=== PATIENT | male | born 1960 | race Caucasian/White ===

== ENCOUNTER 2016-11-24 11:11 | Emergency (ER) | payer BC ==
[2016-11-24] MEDS ORDERED: diPHENhydraMINE IV* 50 MG/ML 1 ml VIAL (BENADRYL) IV ONE (11:20)
[2016-11-24] MEDS ORDERED: methylPREDNISolone 125 MG* 2 ML VIAL IV ONE (11:20)
[2016-11-24] MEDS ORDERED: diPHENhydraMINE IV* 50 MG/ML 1 ml VIAL (BENADRYL) ONE (11:20)
[2016-11-24] MEDS ORDERED: methylPREDNISolone 125 MG* 2 ML VIAL ONE (11:20)
[2016-11-24] MEDS ORDERED: NS 0.9% 1000 ML* 1,000 ML IV ONE (11:20)
[2016-11-24] MEDS ORDERED: Famotidine IV* 10 MG/ML 2 ML (20 mg) IV SLOW PU ONE (11:20)
[2016-11-24] MEDS ORDERED: Famotidine IV* 10 MG/ML 2 ML (20 mg) ONE (11:21)
[2016-11-24] MEDS ORDERED: EPINEPHrine AMP 1 MG/ML SUBCUT ONE (11:21)
--- NOTE | 2016-11-24 11:30 | ED ---
Allergic Reaction/Systemic - HPI Summary HPI Summary: Pt here w/ 7+ bee stings 45 minutes prior to arrival. Was mowing his lawn when a swarm of bees attacked him. H/o bee sting allergy w/ anaphylaxis. Did not take any meds prior to arrival as he couldn't find his epi pen (believes this is anyway). Has throat tightness, axillary itching, head pain. Denies shortness of breath, wheezing, facial swelling or numbness. H/o asthma - does not feel this is exacerbated at this time. He's unsure of last tetanus vaccine. - History of Current Complaint Time Seen by Provider: 11/24/16 11:27 Hx Obtained From: Patient - Allergies/Home Medications Allergies/Adverse Reactions: Allergies Allergy/AdvReac Type Severity Reaction Status Date / Time No Known Allergies Allergy Verified 07/17/15 08:28 PMH/Surg Hx/FS Hx/Imm Hx Previously Healthy: Yes Endocrine/Hematology History: Denies: Hx Diabetes Cardiovascular History: Reports: Hx Hypertension - MEDS Denies: Hx Congestive Heart Failure Respiratory History: Reports: Hx Asthma, Other Respiratory Problems/Disorders - anaphylaxis w/ bee stings Musculoskeletal History: Reports: Hx Arthritis - RIGHT SHOULDER, HX OF ARTHRTIS IN LEFT HIP - TOTAL REPLACEMENT 2008, Other Musculoskeletal History - right shoulder , left hip replacement Sensory History: Reports: Hx Contacts or Glasses - READING GLASSES Denies: Hx Hearing Aid Opthamlomology History: Reports: Hx Contacts or Glasses - READING GLASSES - Surgical History Surgery Procedure, Year, and Place: 2005 LEFT INGUINAL AND UMBILICIAL HERNIA REPAIRS, [facility] [place] 2006 RIGHT INGUINAL HERNIA REPAIR, [facility] [place]. 2008 LEFT HIP REPLACEMENT, [facility] [place]. 1965 TONSILLECTOMY, [facility] Hx Anesthesia Reactions: No - Immunization History Date of Tetanus Vaccine: 2010 Date of Influenza Vaccine: Fall 2012 - Family History Known Family History: Positive: Other - Mother with MS, Father with colon cancer - Social History Alcohol Use: Weekly Hx Substance Use: No Substance Use Type: Reports: None Hx Tobacco Use: No Smoking Status (MU): Never Smoked Tobacco Review of Systems Constitutional: Negative Negative: Fever, Chills ENT: Other - see HPI Negative: Chest Pain Respiratory: Other - see HPI Negative: Shortness Of Breath Negative: Vomiting, Nausea Musculoskeletal: Negative Negative: Decreased ROM, Edema Skin: Other - multiple hives from bee sting sites - see HPI Neurological: Other - see HPI Psychological: Normal All Other Systems Reviewed And Are Negative: Yes Physical Exam Triage Information Reviewed: Yes Vital Signs Reviewed: Yes Appearance: Positive: Well-Appearing, No Pain Distress, Well-Nourished - muscular build Skin: Positive: Warm, Dry - multiple areas of erythematous urticaria over upper extremities and head Head/Face: Positive: Normal Head/Face Inspection - no thania edema Eyes: Positive: Normal, EOMI ENT: Positive: Hearing grossly normal, Pharynx normal Neck: Positive: Supple, Nontender Respiratory/Lung Sounds: Positive: Breath Sounds Present. Negative: Rales, Rhonchi, Stridor, Wheezes Cardiovascular: Positive: Normal, RRR, Pulses are Symmetrical in both Upper and Lower Extremities Musculoskeletal: Positive: Normal, Strength/ROM Intact Neurological: Positive: Normal, Sensory/Motor Intact, Alert, Oriented to Person Place, Time, CN Intact II-III Psychiatric: Positive: Normal Re-Evaluation - Re-Evaluation First Eval Change: Improved - throat tightness and axillary itching improved s/p IV meds Allergic Reaction Course/Dx - Course Course Of Treatment: Pt w/ h/o anaphylactic bee sting reaction here w/ multiple stings over head and UE's 45 mins prior to arrival. C/o throat tightness, itching. Administered IV benadryl, pepcid, NS and subcutaneous epi - pt reports improvement of sx and no CP. Needs observation for at least 4 hours d/t reaction as well as epi being on board. Spoke w/ Dr. Ramirez who will admit for observation as ED census is beyond full capacity. - Diagnoses Provider Diagnoses: Anaphylactic reaction to bee sting Discharge - Discharge Plan Condition: Stable Disposition: ADMITTED TO [facility]
[2016-11-24] MEDS ORDERED: Tetan/Diph/Pertus SYR(Tdap)* 0.5 ML SYR(BOOSTRIX) use SYR IM ONE (13:43)
[2016-11-24 16:43] VITALS: BP 149/98
--- NOTE | 2016-11-24 18:35 | CONS ---
CONSULTATION REPORT: ADDENDUM: Mr. Mackenzie is a 55-year-old male with history of allergy to BEE STING, who was stung b y several bees today. He received an intramuscular shot of EpiPen and Solu-Medrol. He was requeste d by the ED provider to stay overnight for observation. The patient himself is not interested in st aying overnight in the hospital. For the time being, he is going to be observed for the next couple of hours in the emergency department according to the ED provider's wishes and the patient's wishes. A consultation was requested in regards to the possibility of admission. For further detai ls of the patient's presentation, please see the report dictated by Jackelin Ascencio NP, on 11/24/16, with which I agree. [id number]/[place] #: [id number]
--- NOTE | 2016-11-24 19:25 | CONS ---
CC: Quynh Rios NP* CONSULTATION REPORT: DATE OF CONSULT: 11/24/16 PRIMARY CARE PROVIDER: Quynh Rios NP ATTENDING PHYSICIAN: Dr. Rosalba Ramirez (dictated by Brianna Cole NP) CHIEF COMPLAINT: Seven bee stings while mowing the lawn. HISTORY OF PRESENT ILLNESS: Mr. Mackenzie is a 55-year-old male with past medical history significant for hypertension, arthritis, and BEE STING allergy, who presents to the emergency room after being stung by 7 plus bees while he was mowing the lawn. The patient presented to the emergency room for further evaluation due to having a severe allergic reaction past the bee stings. While in the emergency room, the patient received epinephrine, famotidine, Benadryl, Solu-Medrol, a liter of normal saline, and a tetanus shot. Due to the patient' s history of significant allergy, the hospitalists were asked to evaluate the patient for possible admission. The patient denies any recent fever, chills, chest pain, shortness of breath, nausea, vomiting, or diarrhea. The patient reports having a throat tightness that has resolved during his time in the emergency room. PAST MEDICAL HISTORY: 1. Hypertension. 2. Arthritis. PAST SURGICAL HISTORY: 1. Status post a left total hip arthroplasty in 2008. 2. Status post left inguinal and umbilical hernia repair in 2005. 3. Status post right inguinal hernia repair in 2006. 4. Status post tonsillectomy in 1955. HOME MEDICATIONS: Include: 1. Lisinopril 20 mg oral daily. 2. Amlodipine 5 mg oral daily. 3. Testosterone 10 mg 5 pumps and apply topical to thigh daily. ALLERGIES: BEES, FIRE ANTS, and ENVIRONMENTAL ALLERGIES. FAMILY HISTORY: The patient denies any family history of coronary artery disease. The patient has a paternal grandfather with history of diabetes mellitus. The patient's father has history of colon cancer and the patient's paternal grandmother with history of breast cancer. SOCIAL HISTORY: The patient denies tobacco or recreational drug use. The patient occasionally drinks alcoholic beverages. 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 His significant other, Teena Vance, will be his surrogate decision maker in the event he is unable to make decisions for himself. REVIEW OF SYSTEMS: I performed a 14-point review of systems. All the pertinent positives and negatives are mentioned in the history of present illness. The remaining review of systems is negative. PHYSICAL EXAM: Vital Signs: Temperature 99.1, heart rate 91, respiratory rate 18, O2 sat 97% on room air, blood pressure 157/87. General Appearance: The patient is alert, pleasant, appears to be in no acute distress. HEENT: Normocephalic, atraumatic. Pupils equal and reactive to light. Extraocular movements are intact. Respiratory: There is no accessory muscle use and lungs are clear to auscultation bilaterally. Cardiovascular: Regular rate and rhythm. S1 and S2 present. There are no murmurs, rubs, or gallops heard. Abdomen: Soft, nontender, nondistended. There are bowel sounds present x4. Extremities: There is no lower extremity edema. DP and PT pulses are 2+ and symmetric. Musculoskeletal: There is no clubbing or cyanosis noted. The patient exhibits good strength in all extremities. Neurologic: The patient is alert and oriented x4. Cranial nerves II through XII are grossly intact. Psychological: The patient is calm and cooperative. Skin: There are no rashes or abnormalities seen. The patient does have multiple bee stings to his right axillary area. DIAGNOSTIC STUDIES/LAB DATA: None. IMPRESSION: Mr. Mackenzie is a 55-year-old with a past medical history significant for hypertension and arthritis and a BEE STING allergy, who presents to the emergency room after sustaining bee stings earlier today. The hospitalists are asked to consult on this patient. ASSESSMENT AND PLAN: 1. BEE STING allergy. The patient will be monitored on telemetry. He received a dose of Solu-Medrol in the emergency room. We will continue him on a prednisone taper over the next 5 days. The patient does not wish to stay the night, would prefer to be monitored for a couple hours in the emergency room. 2. Hypertension. The patient will be continued on his home lisinopril and amlodipine. 3. Fluids, electrolytes, and nutrition. The patient will be on a regular diet. 4. Code status. Full code. 5. DVT prophylaxis. The patient is a moderate risk and will encourage to ambulate and have SCDs. 6. Disposition: If the patient changes mind, we will admit him as an observation. In the meantime, the patient would prefer to be monitored for a couple of hours in the emergency room and discharged to home. TIME SPENT: Time for this admission was 45 minutes, greater than half the time was spent [id number] with the patient discussing medications, past medical history, the events leading up to his arrival today, performing a physical examination. The case has been reviewed with the attending doctor, Dr. Ramirez, who agrees with the plan of care. Reviewed by BRIANNA COLE, FIELD [employer]OP FARMWORKER-C 11/25/16 1406 ADDENDUM TO CONSULTATION REPORT: Mr. Mackenzie is a 55-year-old male with history of allergy to BEE STING, who was stung by several bees today. He received an intramuscular shot of EpiPen and Solu-Medrol. He was requested by the ED provider to stay overnight for observation. The patient himself is not interested in staying overnight in the hospital. For the time being, he is going to be observed for the next couple of hours in the emergency department according to the ED provider's wishes and the patient's wishes. A consultation was requested in regards to the possibility of admission. For further details of the patient's presentation , please see the report dictated by Brianna Cole, BRANDON, on 11/24/16, with which I agree. Rosalba Ramirez MD [id number]/[facility] #: [id number]/[facility] #: [id number] SURENDRA
[2016-11-25] MEDS ORDERED: Lisinopril TAB* 10 MG PO SCH (09:00)
[2016-11-25] MEDS ORDERED: amLODIPine TAB* 5 MG PO SCH (09:00)
[2016-11-25] MEDS ORDERED: predniSONE TAB* 10 MG PO SCH (09:00)
== END 2016-11-24 16:45 | disposition home or self-care (01) ==
LOC: ED 11:11 → MEDTELE 13:29 → UNDOADMOB 13:29 → ED 16:45
DX: T63.441A Toxic effect of venom of bees, accidental (unintentional), initial encounter (principal); T78.2XXA Anaphylactic shock, unspecified, initial encounter; Y92.89 Other specified places as the place of occurrence of the external cause; X58.XXXA Exposure to other specified factors, initial encounter
CPT/HCPCS: 96374; 96375; 99282; J0171; J1200; J2930

== ENCOUNTER 2017-12-05 11:42 | Emergency (ER) | payer BC, OTHER ==
[2017-12-05] MEDS ORDERED: predniSONE TAB* 20 MG PO ONE (12:23)
[2017-12-05] MEDS ORDERED: diPHENhydraMINE PO* 50 MG PO ONE (12:23)
--- NOTE | 2017-12-05 12:46 | ED ---
Allergic Reaction/Systemic - HPI Summary HPI Summary: This is ana m Foreman documenting for attending Dr. Robby Gerard MD. This patient is a 57 year old M presenting to [facility] with a chief complaint of allergic reaction due to a bee sting since 1.5 hours ago. The patient rates the pain 2/10 in severity. Patient reports erythema of the face and a burning pain on the nose. Patient denies swelling, itching, difficulty breathing, or throat tightness. 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 The bees were white and black. Pt was stung 12 times about a year ago and had a more severe reaction with hives, throat swelling, and itching. Pt last took some Benadryl at 4am. PMHx HTN. Rx Cinapro, Besylate. - History of Current Complaint Chief Complaint: EDAllergicReaction Time Seen by Provider: 12/05/17 12:09 Hx Obtained From: Patient Onset/Duration: Sudden Onset, Started hours ago - 1.5 Timing: Constant Severity Initially: Mild Severity Currently: Mild Pain Intensity: 2 Pain Scale Used: 0-10 Numeric Location: Discrete @ - nose, left shoulder Associated Signs And Symptoms: Positive: Rash - nose and shoulder - Allergies/Home Medications Allergies/Adverse Reactions: Allergies Allergy/AdvReac Type Severity Reaction Status Date / Time bee venom protein (honey bee) Allergy Rash And Verified 12/05/17 12:02 Itching PMH/Surg Hx/FS Hx/Imm Hx Endocrine/Hematology History: Denies: Hx Diabetes Cardiovascular History: Reports: Hx Hypertension - MEDS Denies: Hx Congestive Heart Failure Respiratory History: Reports: Hx Asthma, Other Respiratory Problems/Disorders - anaphylaxis w/ bee stings Musculoskeletal History: Reports: Hx Arthritis - RIGHT SHOULDER, HX OF ARTHRTIS IN LEFT HIP - TOTAL REPLACEMENT 2009, Other Musculoskeletal History - right shoulder , left hip replacement Sensory History: Reports: Hx Contacts or Glasses - READING GLASSES Denies: Hx Hearing Aid Opthamlomology History: Reports: Hx Contacts or Glasses - READING GLASSES - Surgical History Surgery Procedure, Year, and Place: 2005 [place]IN[place] [facility] [place] [facility] [place] [facility] [place] [facility]OM[place], [facility] Hx Anesthesia Reactions: No - Immunization History Date of Tetanus Vaccine: 2010 Date of Influenza Vaccine: Fall 2012 Infectious Disease History: No Infectious Disease History: Denies: Traveled Outside the [place] in Last 30 Days - Family History Known Family History: Positive: Other - Mother with MS, Father with colon cancer - Social History Alcohol Use: Weekly Hx Substance Use: No Substance Use Type: Reports: None Hx Tobacco Use: No Smoking Status (MU): Never Smoked Tobacco Review of Systems Negative: Sore Throat, Other - throat tightness Negative: Shortness Of Breath Positive: Rash - nose and left shoulder All Other Systems Reviewed And Are Negative: Yes Physical Exam - Summary Physical Exam Summary: Constitutional: Well-developed, Well-nourished, Alert. Skin: Warm, Dry. Localized erythematous swelling of the nose and left shoulder. HENT: Normocephalic; Atraumatic Eyes: Conjunctiva normal Neck: Musculoskeletal ROM normal neck. Cardio: Rhythm regular, rate normal, Heart sounds normal; Intact distal pulses; The pedal pulses are 2+ and symmetric. Radial pulses are 2+ and symmetric. Pulmonary/Chest wall: Effort normal. Abd: Soft. Musculoskeletal: normal Neuro: Alert, Oriented x3 Psych: Mood and affect Normal Triage Information Reviewed: Yes Vital Signs On Initial Exam: Initial Vitals Temp Pulse Resp BP Pulse Ox 98.0 F 88 16 165/92 97 12/05/17 11:44 12/05/17 11:44 12/05/17 11:44 12/05/17 11:44 12/05/17 11:44 Vital Signs Reviewed: Yes Diagnostics - Vital Signs Vital Signs Temp Pulse Resp BP Pulse Ox 12/05/17 11:44 98.0 F 88 16 165/92 97 - Laboratory Lab Statement: Any lab studies that have been ordered have been reviewed, and results considered in the medical decision making process. Re-Evaluation - Re-Evaluation First Eval Re-Evaluation Time: 13:40 Comment: I encouraged the pt to stay in the emergency room to see if more symptoms appeared, but the pt wants to leave. Pt knows that the symptoms may get worse. Pt has an Epi-pen at home. Allergic Reaction Course/Dx - Course Course Of Treatment: This is scribe vEangelist Foreman documenting for attending Dr. Robby Gerard MD. This patient is a 57 year old M presenting to [facility] with a chief complaint of allergic reaction due to a bee sting since 1.5 hours ago. The patient rates the pain 2/10 in severity. Patient reports erythema of the face and a burning pain on the nose. Patient denies swelling, itching, difficulty breathing, or throat tightness. 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 The bees were white and black. Pt was stung 12 times about a year ago and had a more severe reaction with hives, throat swelling, and itching. Pt last took some Benadryl at 4am. PMHx HTN. Rx Cinapro, Besylate. Pt was advised not to work today and to call for a ride home. In the ED course the patient was given Benadryl and Prednisone. Pt was advised to wait in the ER but they decided they wanted to leave. Pt has an Epi-pen at home if more symptoms appear. - Diagnoses Provider Diagnoses: Bee sting allergy Discharge - Sign-Out/Discharge Documenting (check all that apply): Patient Departure - discharge - Discharge Plan Condition: Stable Disposition: HOME Prescriptions: predniSONE TAB* [Deltasone TAB*] 50 mg PO DAILY #4 tab Patient Education Materials: Insect Bite or Sting (ED) Referrals: Dangelo Arzate MD [Primary Care Provider] - Additional Instructions: RETURN TO THE EMERGENCY DEPARTMENT FOR CHANGING OR WORSENING SYMPTOMS
--- OUTSIDE RECORDS SUMMARY | 2017-12-05 12:47 | XMS REPORT ---
:1960 External Reference #:[id number] Author Organization [facility] Address [address] [place] [address] Phone [phone] Care Team Providers Name Role Phone Dangelo Arzate MD Care Team Information Chlorinator Unavailable Payers Type Date Identification Numbers Payment Provider Subscriber Commercial Expires: Policy Number: Constantine Mackenzie 2015 [id number] Group Name: [place] [address] [address] PayID: [id number] TOMASA Contreras [id number] Medigap Part B Effective: Policy Number: Constantine Mackenzie 2015 [id number] Group Name: [employer] 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 [employer] Cigarette Use Never Smoked Cigarettes ETOH Use Occasionally consumes beer Recreational Drug Use Denies Drug Use Smoking Patient has never smoked Enjoy Exercising Enjoys exercising Allergies, Adverse Reactions, Alerts Date Description Reaction Status Severity Comments 10/16/2013 NKDA active Medications Medication Date Status Form Strength Qnty SIG Indications Ordering Provider Cialis 11/09 Active Tablets 5mg 30tab 1 by mouth N40.1 Dangleo /2018 s once daily MD Carito Flomax 11/09 Active Capsules 0.4mg 30cap 1 by mouth N40.1 Dangelo s every day MD Thomas Arzate 08/26 Active Capsules 100mg 45cap take 1 Dangelo s capsule by [place]ks mouth 3 , MD times per day as needed for cough Meloxicam 07/21 Active Tablets 15mg 30tab Take One M25.512 Dangelo s Tablet By Louieetdaphney Mouth Every , MD Day Epipen 2-Danny 12/28 Active Solution 0.3mg/0.3 2Pack use as Quynh Auto-Inject ML directed HIRAL SharpP-C Hydrocodone-Acet 09/18 Active Tablets 5-325mg 15tab 1 by mouth M54.2 Dangelo aminophen /2016 s every 6 [place] hours as MD needed Fortesta 05/06 Active Gel 10mg/Act 60uni apply 5 I10 Dangelo (2%) ts pumps once [place] daily to , thigh; maximum daily dose=5 pumps Fortesta 05/06 Active Gel 10mg/Act 60uni Apply 5 Srini (2%) ts Pumps Once Zion Daily To III, Thigh; [employer] Maximum Daily Dose=5 Pumps Amlodipine 10/20 Active Tablets 5mg 30tab Take One Quynh Besylate s Tablet By Aron Mouth Every [employer] Day Lisinopril 10/16 Active Tablets 20mg 30tab Take One Dangelo s Tablet By Carito Mouth Every , MD Day Proair Active Aerosol 108(90Bas as directed Unknown Respiclick /0000 e) mcg/Act Augmentin 05/05 Hx Tablets 875-125mg 20tab 1 by mouth J01.90 Quynh s twice a day Sallie Sharp for [employer] 06/18 infection, take for 10 days Cyclobenzaprine 09/18 Hx Tablets 5mg 30tab 1-2 by M54.2 Dangelo HCL s mouth three [place] - times a day MD 08/26 for spasm, may cause drowsiness Cialis 06/16 Hx Tablets 5mg 30tab 1 by mouth Quynh s every day Sallie Sharp [employer] 11/09 Azithromycin 12/29 Hx Tablets 250mg 6tabs take 2 J01.90 tablets Aron, - today then [facility] 06/05 1 tablet daily for the next 4 days Androgel 04/29 Hx Gel 50mg/5GM 30pac apply the (1%) kets contents of Aron, - [address] [facility] 06/05 the upper arm, shoulder or abdomen once daily at the same time. Tizanidine HCL 03/27 Hx Tablets 4mg 30tab take 05/11-1 S46.812A Srini s tablet by Whitman - mouth three III, 03/[address] [facility] as needed for muscle spasm Androgel 11/03 Hx Gel 50mg/5GM 10gm Apply 4 (1%) pumps to Aron, - skin on [facility] 11/03 upper arms /2015 or abdomen daily. allow to dry before dressing Androgel Pump 11/03 Hx Gel 12.5mg/Ac 150gm apply 4 t (1%) pumps to [facility] arms or [facility] 04/29 abdomen once daily allow to dry prior to dressing maximum daily dose=4 pumps Doxycycline 09/15 Hx Capsules 100mg 2caps 2 tabs by Quynh Cm mouth today Sallie Sharp [facility] 06/05 Lansoprazole 07/[address] 30mg 28cap 1 tab by Nimo Pierson s mouth twice [place] - a day MD 03/12 Amoxicillin 07/23 Hx Tablets 500mg 56tab 2 tab by Nimo Pierson /Uche s mouth twice [place] - a day , 06/05 Clarithromycin 07/23 Hx Tablets 500mg 28tab 1 take by Nimo Pierson /2015 s mouth [place] - MD adelina 06/05 every hours for 14 days Protonix 06/[address] 20mg 30tab 1 by mouth [facility]h [facility] Ondans[facility]ron 06/12 Hx Tablets 4mg 10tab dissolve 1 R10.9 Quynh /2016 Dispers s tab by Aron, - mouth three [employer] 07/23 times a day /2015 as needed nausea Hydroxyzine HCL 01/23 Hx Tablets 25mg 45tab Take 1 To 2 401.1 Quynh s Tablets By Aron, - Mouth Every [employer] 07/23 6 Hours as Needed For Anxiety/ Insomnia Cyclobenzaprine 12/15 Hx Tablets 5mg 30tab 1-2 by 724.2 Quynh HCL s mouth three Aron, - times a day [employer] 07/23 for muscle /2016 spasm, may cause drowsiness Meloxicam 12/15 Hx Tablets 7.5mg 30tab 1 by mouth 724.2 s bid for Aron, - back pain, [employer] 07/23 take with food Oxycodone-Acetam 12/15 Hx Tablets 5-325mg 15fif 1 - 2 tabs 724.2 Quynh ino teen by mouth Aron, - every 6 [employer] 01/23 hours as needed severe pain Hyoscyamine 10/20 Hx Tablets 0.125mg 1 tablet q 4 hours prn Aron, - [employer] 07/23 Zofran 10/20 Hx Tablets 4mg Aron, - [employer] 01/23 Hydrocodone-Acet 10/20 Hx Tablets 5-325mg 16six amino teen Aron, - [employer] 01/23 Ibuprofen 10/20 Hx Tablets 200mg 3 tabs po q 6-8 hours Aron, - prn pain [employer] 01/23 Fortesta 10/16 Hx Gel 10mg/Act 60uni apply 5 I10 (2%) ts pumps once Aron, - daily to [employer] 11/03 thigh maximum daily dose=5 pumps Dymista 00/00 Hx Suspension 137-50mcg as directed Unknown /0000 /Act - 03/12 Immunizations CPT Code Status Date Vaccine Lot # [id number] Given Unknown Tetanus [id number] Refused 11/09/2017 Influenza Virus Vaccine, Quadrivalent, 3 Yr > Quad , Preserv Free [id number] Refused 06/05/2016 Influenza Virus Vaccine, Quadrivalent, 3 Yr > Quad , Preserv Free 14603 Refused 05/07/2016 Influenza Virus Vaccine, Quadrivalent, 3 Yr > Quad , Preserv Free Vital Signs Date Vital Result Comment 11/09/2017 Weight 294.00 lb Weight in kg's 133.358 BP Systolic 148 mmHg BP Diastolic 91 mmHg Heart Rate 76 /min Body Temperature 97.7 F Height 71 inches 5'11" BMI (Body Mass Index) 41.0 kg/m2 O2 % BldC Oximetry 97 % 08/26/2017 Weight 301.00 lb Weight in kg's 136.534 BP Systolic 148 mmHg BP Diastolic 88 mmHg Heart Rate 92 /min Body Temperature 99.0 F Respiratory Rate 16 /min O2 % BldC Oximetry 98 % 07/21/2017 Weight 299.00 lb Weight in kg's 135.626 BP Systolic 140 mmHg BP Diastolic 78 mmHg Heart Rate 82 /min Body Temperature 97.3 F Respiratory Rate 16 /min O2 % BldC Oximetry 98 % 06/18/2017 Weight 300.00 lb Weight in kg's 136.080 BP Systolic 138 mmHg BP Diastolic 78 mmHg Heart Rate 80 /min Body Temperature 97.1 F Respiratory Rate 16 /min O2 % BldC Oximetry 98 % 05/05/2017 Weight 295.00 lb Weight in kg's 133.812 BP Systolic 142 mmHg BP Diastolic 82 mmHg Heart Rate 80 /min Body Temperature 97.5 F Respiratory Rate 15 /min O2 % BldC Oximetry 98 % 03/12/2017 Weight 250.00 lb Weight in kg's 113.400 BP Systolic 138 mmHg BP Diastolic 80 mmHg Heart Rate 81 /min Body Temperature 97.5 F Right Visual Acuity Distance 20/20 Left Visual Acuity Distance 20/20 Both Visual Acuity Distance 20/20 Right ear audiology results PASS Left ear audiology results PASS 12/28/2016 Weight 273.00 lb Weight in kg's 123.833 BP Systolic 138 mmHg BP Diastolic 80 mmHg Heart Rate 84 /min Body Temperature 97.5 F Respiratory Rate 20 /min 09/18/2016 Weight 286.00 lb Weight in kg's 129.730 BP Systolic 140 mmHg BP Diastolic 90 mmHg Heart Rate 64 /min Body Temperature 98.3 F Respiratory Rate 14 /min 06/05/2016 Weight 286.00 lb Weight in kg's 129.730 BP Systolic 138 mmHg BP Diastolic 90 mmHg Heart Rate 73 /min Body Temperature 98.0 F Respiratory Rate 14 /min O2 % BldC Oximetry 97 % 05/07/2016 Weight 292.00 lb Weight in kg's 132.451 BP Systolic 120 mmHg BP Diastolic 80 mmHg Heart Rate 73 /min Body Temperature 97.7 F Respiratory Rate 16 /min O2 % BldC Oximetry 98 % 03/27/2016 Weight 287.00 lb Weight in kg's 130.183 BP Systolic 150 mmHg BP Diastolic 94 mmHg Heart Rate 92 /min 11/07/2015 Weight 281.00 lb Weight in kg's 127.462 BP Systolic 142 mmHg BP Diastolic 92 mmHg Heart Rate 56 /min Body Temperature 99.0 F O2 % BldC Oximetry 98 % 07/24/2015 Weight 279.00 lb Weight in kg's 126.554 BP Systolic 128 mmHg BP Diastolic 86 mmHg Heart Rate 64 /min Body Temperature 98.3 F 06/12/2015 Weight 289.00 lb Weight in kg's 131.090 BP Systolic 160 mmHg BP Diastolic 94 mmHg Heart Rate 64 /min 02/07/2014 Weight 282.00 lb Weight in kg's 127.915 BP Systolic 138 mmHg BP Diastolic 88 mmHg Heart Rate 72 /min 01/23/2014 Weight 288.00 lb Weight in kg's 130.637 BP Systolic 142 mmHg BP Diastolic 92 mmHg Heart Rate 72 /min 12/15/2013 Weight 282.00 lb Weight in kg's 127.915 BP Systolic 142 mmHg BP Diastolic 84 mmHg Heart Rate 68 /min 10/16/2013 Weight 281.00 lb Weight in kg's 127.462 BP Systolic 152 mmHg BP Diastolic 88 mmHg Heart Rate 72 /min Height 71.5 inches 5'11.50" BMI (Body Mass Index) 38.6 kg/m2 Results Test Date Test Result H/L Range Note Laboratory test finding 11/09/2017 PSA Screening 0.522 ng/mL 0-4.000 1 Urine DIP 11/09/2017 Leukocytes + Neg Urine Nitrites NEG Neg Urobilinogen NORM Norm Total Protein, Urine TRACE Neg Urine pH 7 High 5-6 Urine Blood NEG Neg Specific [place] 1.015 1.01-1.02 Urine Ketones NEG Neg Urine Bilirubin NEG Neg Urine Glucose NORM Norm CBC Auto Diff 06/18/2017 White Blood Count 8.9 10^3/uL 3.5-10.8 2 Red Blood Count 5.19 10^6/uL 4.0-5.4 2 Hemoglobin 16.3 g/dL 14.0-18.0 2 Hematocrit 47 % 42-52 2 Mean Corpuscular Volume 90 fL 80-94 2 Mean Corpuscular Hemoglobin 31 pg 27-31 2 Mean Corpuscular HGB Conc 35 g/dL 31-36 2 Red Cell Distribution Width 13 % 10.5-15 2 Platelet Count 215 10^3/uL 150-450 2 Mean Platelet Volume 9 um3 7.4-10.4 2 Abs Neutrophils 4.8 10^3/uL 1.5-7.7 2 Abs Lymphocytes 2.8 10^3/uL 1.0-4.8 2 Abs Monocytes 0.8 10^3/uL 0-0.8 2 Abs Eosinophils 0.4 10^3/uL 0-0.6 2 Abs Basophils 0.1 10^3/uL 0-0.2 2 Abs Nucleated RBC 0 10^3/uL 2 Granulocyte % 53.8 % 38-83 2 Lymphocyte % 31.9 % 25-47 2 Monocyte % 9.2 % High 1-9 2 Eosinophil % 4.1 % 0-6 2 Basophil % 1.0 % 0-2 2 Nucleated Red Blood Cells % 0.3 2 Comp Metabolic Panel 06/18/2017 Sodium 138 mmol/L 133-145 2 Potassium 4.4 mmol/L 3.5-5.0 2 Chloride 101 mmol/L 101-111 2 Co2 Carbon Dioxide 31 mmol/L 22-32 2 Anion Gap 6 mmol/L 2-11 2 Glucose 92 mg/dL 70-100 2 Blood Urea Nitrogen 14 mg/dL 6-24 2 Creatinine 1.04 mg/dL 0.67-1.17 2 BUN/Creatinine Ratio 13.5 8-20 2 Calcium 9.3 mg/dL 8.6-10.3 2 Total Protein 7.3 g/dL 6.4-8.9 2 Albumin 4.4 g/dL 3.2-5.2 2 Globulin 2.9 g/dL 2-4 2 Albumin/Globulin Ratio 1.5 1-3 2 Total Bilirubin 0.50 mg/dL 0.2-1.0 2 Alkaline Phosphatase 42 U/L 34-104 2 Alt 15 U/L 7-52 2 Ast 15 U/L 13-39 2 Egfr Non- 73.6 >60 2 Egfr 94.7 >60 2, 3 Lipid Profile (Trig/Chol/HDL) 06/18/2017 Triglycerides 102 mg/dL 2, 4 Cholesterol 199 mg/dL 2, 5 HDL Cholesterol 44.7 mg/dL 2, 6 LDL Cholesterol 134 mg/dL 2, 7 Testosterone Free & 06/18/2017 Free Testosterone ng/dl 7.73 ng/dL 3.87- 14.7 2, 8 Total Testosterone 368 ng/dL 240-950 2, 9 Laboratory test finding 06/18/2017 PSA Screening 0.493 ng/mL 0-4.000 2, 10 Urine DIP 03/12/2017 Leukocytes NEG Neg Urine Nitrites NEG Neg Urobilinogen NORM Norm Total Protein, Urine NEG Neg Urine pH 6 5-6 Urine Blood NEG Neg Specific [place] 1.015 1.01-1.02 Urine Ketones NEG\\ Neg Urine Bilirubin NEG Neg Urine Glucose NORM Norm Comp Metabolic Panel 06/05/2016 Sodium 138 mmol/L 133-145 Potassium 4.1 mmol/L 3.5-5.0 Chloride 103 mmol/L 101-111 Co2 Carbon Dioxide 30 mmol/L 22-32 Anion Gap 5 mmol/L 2-11 Glucose 99 mg/dL 70-100 Blood Urea Nitrogen 12 mg/dL 6-24 Creatinine 0.86 mg/dL 0.67-1.17 BUN/Creatinine Ratio 14.0 8-20 Calcium 9.2 mg/dL 8.6-10.3 Total Protein 7.2 g/dL 6.4-8.9 Albumin 4.2 g/dL 3.2-5.2 Globulin 3.0 g/dL 2-4 Albumin/Globulin Ratio 1.4 1-3 Total Bilirubin 0.80 mg/dL 0.2-1.0 Alkaline Phosphatase 46 U/L 34-104 Alt 12 U/L 7-52 Ast 14 U/L 13-39 Egfr Non- 92.0 >60 Egfr 118.3 >60 11 Laboratory test finding 06/05/2016 Lipase 39 U/L 11.0-82.0 12 Amylase 42 U/L 29-103 13 Hepatitis C Antibody Nonreactive Nonreactive 14 Testosterone Profile 06/05/2016 Testosterone 584 ng/dL 240-950 15 Free Testosterone ng/dl 20.4 ng/dL 3.87-14.7 16 Bioavailable Testosterone 146 ng/dL 50-190 17 Laboratory test finding 06/05/2016 Reference Lab Test See Comment 18 CBC Auto Diff 06/05/2016 White Blood Count 7.2 10^3/uL 3.5-10.8 Red Blood Count 4.96 10^6/uL 4.0-5.4 Hemoglobin 15.3 g/dL 14.0-18.0 Hematocrit 45 % 42-52 Mean Corpuscular Volume 91 fL 80-94 Mean Corpuscular Hemoglobin 31 pg 27-31 Mean Corpuscular HGB Conc 34 g/dL 31-36 Red Cell Distribution Width 13 % 10.5-15 Platelet Count 176 10^3/uL 150-450 Mean Platelet Volume 9 um3 7.4-10.4 Abs Neutrophils 4.3 10^3/uL 1.5-7.7 Abs Lymphocytes 1.8 10^3/uL 1.0-4.8 Abs Monocytes 0.9 10^3/uL High 0-0.8 Abs Eosinophils 0.2 10^3/uL 0-0.6 Abs Basophils 0.1 10^3/uL 0-0.2 Abs Nucleated RBC 0.01 10^3/uL Granulocyte % 59.1 % 38-83 Lymphocyte % 25.2 % 25-47 Monocyte % 11.9 % High 1-9 Eosinophil % 2.8 % 0-6 Basophil % 1.0 % 0-2 Nucleated Red Blood Cells % 0.1 Laboratory test finding 02/21/2016 PSA Screening 0.304 ng/mL 0-4.000 19 Testosterone Free & 02/21/2016 Free Testosterone ng/dl 5.06 ng/dL 3.87- 14.7 20 Total Testosterone 220 ng/dL 240-950 21 Laboratory test finding 02/05/2016 Helico Pylori Antigen- Negative Negative 22 Stool CBC Auto Diff 06/12/2015 White Blood Count 5.7 10^3/uL 3.5-10.8 Red Blood Count 5.33 10^6/uL 4.0-5.4 Hemoglobin 16.5 g/dL 14.0-18.0 Hematocrit 49 % 42-52 Mean Corpuscular Volume 91 fL 80-94 Mean Corpuscular Hemoglobin 31 pg 27-31 Mean Corpuscular HGB Conc 34 g/dL 31-36 Red Cell Distribution Width 13 % 10.5-15 Platelet Count 178 10^3/uL 150-450 Mean Platelet Volume 9 um3 7.4-10.4 Abs Neutrophils 3.3 10^3/uL 1.5-7.7 Abs Lymphocytes 1.5 10^3/uL 1.0-4.8 Abs Monocytes 0.6 10^3/uL 0-0.8 Abs Eosinophils 0.2 10^3/uL 0-0.6 Abs Basophils 0.1 10^3/uL 0-0.2 Abs Nucleated RBC 0.01 10^3/uL Granulocyte % 58.6 % 38-83 Lymphocyte % 26.2 % 25-47 Monocyte % 10.5 % High 1-9 Eosinophil % 3.8 % 0-6 Basophil % 0.9 % 0-2 Nucleated Red Blood Cells % 0.2 Comp Metabolic Panel 06/12/2015 Sodium 139 mmol/L 133-145 Potassium 4.3 mmol/L 3.5-5.0 Chloride 104 mmol/L 101-111 Co2 Carbon Dioxide 30 mmol/L 22-32 Anion Gap 5 mmol/L 2-11 Glucose 98 mg/dL 70-100 Blood Urea Nitrogen 15 mg/dL 6-24 Creatinine 0.87 mg/dL 0.67-1.17 BUN/Creatinine Ratio 17.2 8-20 Calcium 9.0 mg/dL 8.6-10.3 Total Protein 7.1 g/dL 6.4-8.9 Albumin 4.4 g/dL 3.2-5.2 Globulin 2.7 g/dL 2-4 Albumin/Globulin Ratio 1.6 1-3 Total Bilirubin 0.70 mg/dL 0.2-1.0 Alkaline Phosphatase 42 U/L 34-104 Alt 15 U/L 7-52 Ast 15 U/L 13-39 Egfr Non- 91.1 >60 Egfr 117.2 >60 23 Laboratory test finding 06/12/2015 Lipase 40 U/L 11.0-82.0 Amylase 47 U/L 29-103 H.Pylori Igm AB 06/12/2015 Helicobacter pylori IgM Ab Negative Negative H pylori IgM AB Index 9.01 24 Laboratory test 06/12/2015 Hepatitis C Antibody Nonreactive Nonreactive finding H Pylori Iga 06/12/2015 Helicobacter pylori IgA Negative Negative Ab H pylori IgA Ab Index 2.54 25 H.Pylori Igg AB 06/12/2015 Helicobacter pylori IgG Ab Positive Negative 26 H pylori IgG AB Index 12.80 27 Laboratory test finding 11/19/2014 LH (Lutenizing Hormone) < 0.2 ?IU/mL Low 2-12 Testosterone Free & Total 11/19/2014 Free Testosterone ng/dl 20 ng/dL 9- 30 28 Testosterone 623 ng/dL 240-950 29 Laboratory test finding 11/19/2014 Testosterone Total 463.76 ng/dL 240- 950 PSA Screening 0.467 ng/mL 0-4.000 30 Testosterone Free & Total 06/27/2014 Free Testosterone ng/dl TNP 31 Testosterone TNP Testosterone Total Bioavail 06/27/2014 Testosterone TNP () 32 Bioavailable Testosterone TNP () 33 Testosterone Free & Total 06/27/2014 Free Testosterone ng/dl TNP () 34 Testosterone TNP Testosterone Total Bioavail 06/27/2014 Testosterone TNP 35 Bioavailable Testosterone TNP 36 Laboratory test finding 06/27/2014 Luteinizing Hormone 2.6 IU/mL 2-12 Testosterone Free & Total 05/18/2014 Free Testosterone ng/dl 19 ng/dL 9- 30 37, 38 Testosterone 595 ng/dL 240-950 37, 39 Laboratory test finding 05/18/2014 Luteinizing Hormone 0.2 IU/mL Low 2-12 37, 40 Testosterone Free & 02/01/2014 Free Testosterone ng/dl 3.0 ng/dL 9-30 41 Total Testosterone 119 ng/dL 240-950 42 Laboratory test finding 02/01/2014 PSA Screening 0.293 ng/mL 0-4.000 43 CBC Auto Diff 01/17/2014 White Blood Count 6.7 10^3/uL 4.8-10.8 Red Blood Count 4.80 10^6/uL 4.0-5.4 Hemoglobin 15.0 g/dL 14.0-18.0 Hematocrit 43 % 42-52 Mean Corpuscular Volume 90 fL 80-94 Mean Corpuscular Hemoglobin 31 pg 27-31 Mean Corpuscular HGB Conc 35 g/dL 31-36 Red Cell Distribution Width 14 % 10.5-15 Platelet Count 171 10^3/uL 150-450 Mean Platelet Volume 9 um3 7.4-10.4 Abs Neutrophils 4.2 10^3/uL 1.5-7.7 Abs Lymphocytes 1.5 10^3/uL 1.0-4.8 Abs Monocytes 0.7 10^3/uL 0-0.8 Abs Eosinophils 0.2 10^3/uL 0-0.6 Abs Basophils 0 10^3/uL 0-0.2 Abs Nucleated RBC 0 10^3/uL Granulocyte % 63.3 % 38-83 Lymphocyte % 22.2 % Low 25-47 Monocyte % 10.7 % High 1-9 Eosinophil % 3.2 % 0-6 Basophil % 0.6 % 0-2 Nucleated Red Blood Cells % 0 Comp Metabolic Panel 01/17/2014 Sodium 138 mmol/L 133-145 Potassium 4.1 mmol/L 3.7-5.6 Chloride 105 mmol/L 101-111 Co2 Carbon Dioxide 28 mmol/L 22-32 Anion Gap 5 mmol/L 2-11 Glucose 101 mg/dL High 70-100 Blood Urea Nitrogen 16 mg/dL 6-24 Creatinine 0.95 mg/dL 0.67-1.17 BUN/Creatinine Ratio 16.8 8-20 Calcium 8.9 mg/dL 8.6-10.3 Total Protein 7.1 g/dL 6.4-8.9 Albumin 4.1 g/dL 3.2-5.2 Globulin 3.0 g/dL 2-4 Albumin/Globulin Ratio 1.4 1-3 Total Bilirubin 0.80 mg/dL 0.2-1.0 Alkaline Phosphatase 46 U/L 34-104 Alt 12 U/L 7-52 Ast 14 U/L 13-39 Egfr Non- 82.6 >60 Egfr 106.2 >60 44 Lipid Profile (Trig/Chol/HDL) 01/17/2014 Triglycerides 104 mg/dL 45 Cholesterol 186 mg/dL 46 HDL Cholesterol 43.0 mg/dL 47 LDL Cholesterol 122 mg/dL 48 Testosterone Free & Total 01/17/2014 Free Testosterone ng/dl 4.0 ng/dL 9- 30 49 Testosterone 167 ng/dL 240-950 50 1 Serum levels of PSA measured using the Miranda [place] DXI Hybritech immunoassay should not be interpreted as absolute evidence of the presence or absence of disease. The PSA value should be used in conjunction with other pertinent clinical diagnostic procedures. A PSA value in the range of 0.1 to 0.6 ng/ml is indeterminate if being used as an indicator of recurrent or residual disease. The values obtained with different assay methods or kits cannot be used interchangeably. 2 [id number] 3 Because ethnic data is not always readily available, this report includes an eGFR for both -Americans and non- Americans. The National Kidney Disease Education Program (NKDEP) does not endorse the use of the MDRD equation for patients that are not between the ages of 18 and 70, are , have extremes of body size, muscle mass, or nutritional status, or are non- or non-. According to the National Kidney Foundation, irrespective of diagnosis, the stage of the disease is based on the level of kidney function: Stage Description GFR(mL/min/1.73 m(2)) 1 Kidney damage with normal or decreased GFR 90 2 Kidney damage with mild decrease in GFR 60-89 3 Moderate decrease in GFR 30-59 4 Severe decrease in GFR 15-29 5 Kidney failure <15 (or dialysis) 4 Desirable: <150 Borderline High: 150-199 High: 200-499 Very High: >500 5 Desirable: <200 Borderline High: 200-239 High: >239 6 Low: <40 Desirable: 40-60 High: >60 7 Desirable: <100 Near Optimal: 100-129 Borderline High: 130-159 High: 160-189 Very High: >189 8 ADDITIONAL INFORMATION Testing performed by [facility]. This test was developed and its performance characteristics determined by [facility] in a manner consistent with CLIA requirements. This test has not been cleared or approved by the U.S. Food and Drug Administration. 9 ADDITIONAL INFORMATION Testing performed by Liquid Chromatography-Tandem Mass Spectrometry (LC-MS/MS). This test was developed and its performance characteristics determined by [facility] in a manner consistent with CLIA requirements. This test has not been cleared or approved by the U.S. Food and Drug Administration. Test Performed by: [facility] [address] [place] [address] 10 Serum levels of PSA measured using the Miranda [place] DXI Hybritech immunoassay should not be interpreted as absolute evidence of the presence or absence of disease. The PSA value should be used in conjunction with other pertinent clinical diagnostic procedures. A PSA value in the range of 0.1 to 0.6 ng/ml is indeterminate if being used as an indicator of recurrent or residual disease. The values obtained with different assay methods or kits cannot be used interchangeably. 11 Because ethnic data is not always readily available, this report includes an eGFR for both -Americans and non- Americans. The National Kidney Disease Education Program (NKDEP) does not endorse the use of the MDRD equation for patients that are not between the ages of 18 and 70, are , have extremes of body size, muscle mass, or nutritional status, or are non- or non-. According to the National Kidney Foundation, irrespective of diagnosis, the stage of the disease is based on the level of kidney function: Stage Description GFR(mL/min/1.73 m(2)) 1 Kidney damage with normal or decreased GFR 90 2 Kidney damage with mild decrease in GFR 60-89 3 Moderate decrease in GFR 30-59 4 Severe decrease in GFR 15-29 5 Kidney failure <15 (or dialysis) 12 [id number] 15 ADDITIONAL INFORMATION Testing performed by Liquid Chromatography-Tandem Mass Spectrometry (LC-MS/MS). This test was developed and its performance characteristics determined by [facility] in a manner consistent with CLIA requirements. This test has not been cleared or approved by the U.S. Food and Drug Administration. 16 ADDITIONAL INFORMATION Testing performed by [facility]. This test was developed and its performance characteristics determined by [facility] in a manner consistent with CLIA requirements. This test has not been cleared or approved by the U.S. Food and Drug Administration. 17 ADDITIONAL INFORMATION Testing performed by [facility]. This test was developed and its performance characteristics determined by [facility] in a manner consistent with CLIA requirements. This test has not been cleared or approved by the U.S. Food and Drug Administration. Test Performed by: [facility] [place] [address] Yarn Preparation Supervisor: Sergio Mcdonough II, M.D., Ph.D. 18 Test Result Flag Unit RefValue TSH, Sensitive, S 0.8 mIU/L 0.3-4.2 Test Performed by: [facility] [place] [address] Yarn Preparation Supervisor: Sergio Mcdonough II, M.D., Ph.D. 19 Serum levels of PSA measured using the Miranda [place]anda DXI Hybritech immunoassay should not be interpreted as absolute evidence of the presence or absence of disease. The PSA value should be used in conjunction with other pertinent clinical diagnostic procedures. A PSA value in the range of 0.1 to 0.6 ng/ml is indeterminate if being used as an indicator of recurrent or residual disease. The values obtained with different assay methods or kits cannot be used interchangeably. 20 ADDITIONAL INFORMATION Testing performed by [facility]. This test was developed and its performance characteristics determined by [facility] in a manner consistent with CLIA requirements. This test has not been cleared or approved by the U.S. Food and Drug Administration. 21 ADDITIONAL INFORMATION Testing performed by Liquid Chromatography-Tandem Mass Spectrometry (LC-MS/MS). This test was developed and its performance characteristics determined by [facility] in a manner consistent with CLIA requirements. This test has not been cleared or approved by the U.S. Food and Drug Administration. Test Performed by: [facility] [place] [address] Yarn Preparation Supervisor: Sergio Mcdonough II, M.D., Ph.D. 22 Test Performed by: [place] [address] Yarn Preparation Supervisor: Sergio Mcdonough II, M.D., Ph.D. 23 Because ethnic data is not always readily available, this report includes an eGFR for both -Americans and non- Americans. The National Kidney Disease Education Program (NKDEP) does not endorse the use of the MDRD equation for patients that are not between the ages of 18 and 70, are , have extremes of body size, muscle mass, or nutritional status, or are non- or non-. According to the National Kidney Foundation, irrespective of diagnosis, the stage of the disease is based on the level of kidney function: Stage Description GFR(mL/min/1.73 m(2)) 1 Kidney damage with normal or decreased GFR 90 2 Kidney damage with mild decrease in GFR 60-89 3 Moderate decrease in GFR 30-59 4 Severe decrease in GFR 15-29 5 Kidney failure <15 (or dialysis) 24 Results with Index Values of <36.00 are negative. Test Performed by: [place] [address] Yarn Preparation Supervisor: Sergio Mcdonough II, M.D., Ph.D. 25 Results with Index Values of <18.00 are negative. Test Performed by: [place] [address] Yarn Preparation Supervisor: Sergio Mcdonough II, M.D., Ph.D. 26 The presence of IgG-class antibody to H. pylori may indicate current or past infection. A positive antibody result alone is not diagnostic for current H. pylori infection. Acute infection can be diagnosed using the H. pylori urea breath test or the H. pylori stool antigen test. 27 Results with Index Values of=>8.95 are positive. Test Performed by: [place] [address] Yarn Preparation Supervisor: Sergio Mcdonough II, M.D., Ph.D. 28 ADDITIONAL INFORMATION Testing performed by [facility]. 29 ADDITIONAL INFORMATION Testing performed by Liquid Chromatography-Tandem Mass Spectrometry (LC-MS/MS). Test Performed by: [place] [address] Yarn Preparation Supervisor: Sergio Mcdonough II, M.D., Ph.D. 30 Serum levels of PSA measured using the Miranda Connectify DXI Hybritech immunoassay should not be interpreted as absolute evidence of the presence or absence of disease. The PSA value should be used in conjunction with other pertinent clinical diagnostic procedures. A PSA value in the range of 0.1 to 0.6 ng/ml is indeterminate if being used as an indicator of recurrent or residual disease. The values obtained with different assay methods or kits cannot be used interchangeably. 31 Testosterone, Total and Free, S was cancelled on 06/29/2014 at 08:21; Test cancelled by RBS rule <[email or web address]> Reason: Test TGRP is cancelled and replaced with Test TTFB due to being ordered with Test TTBS. --- 06/29/14927 --- Free Test ng/dl previously reported as: Test not performed Cancelled due to duplicate test on this order 32 Testosterone, Total, Bio, Free, S was cancelled on 02/14/2016 at 16:09; Test ordered in error. Communication error between [facility] [employer] and [facility] [employer]. --- 02/14/16 1713 --- Testosterone previously reported as: Test not performed Testosterone, Total and Free, S was cancelled on 06/29/2014 at 08:21; Test cancelled by RBS rule <[email or web address]> Reason: Test TGRP is cancelled and replaced with Test TTFB due to being ordered with Test TTBS. Test Performed by: [place] [id number] Yarn Preparation Supervisor: Sergio Mcdonough II, M.D., Ph.D. --- 06/29/14927 --- Testosterone previously reported as: Test not performed Cancelled due to duplicate test on this order 33 Testosterone, Total, Bio, Free, S was cancelled on 02/14/2016 at 16:09; Test ordered in error. Communication error between [facility] [employer] and [facility] [employer]. Test Performed by: [facility], [place] [address] [id number] Yarn Preparation Supervisor: Sergio Mcdonough II, M.D., Ph.D. --- 02/14/161712 --- Bio Testost previously reported as: Test not performed Testosterone, Total and Bioavail, S was cancelled on 06/29/2014 at 08:21; Test cancelled by RBS rule <[email or web address]> Reason: Test TTBS is cancelled and replaced with Test TTFB due to being ordered with Test TGRP. --- 06/29/14927 --- Bio Testost previously reported as: Test not performed Cancelled due to duplicate test on this order 34 Testosterone, Total, Bio, Free, S was cancelled on 02/14/2016 at 16:09; Test ordered in error. [facility] and [facility] [employer]. --- 02/14/161712 --- Free Test ng/dl previously reported as: Test not performed Testosterone, Total and Free, S was cancelled on 06/29/2014 at 08:21; Test cancelled by RBS rule <[email or web address]> Reason: Test TGRP is cancelled and replaced with Test TTFB due to being ordered with Test TTBS. --- 06/29/14927 --- Free Test ng/dl previously reported as: Test not performed Cancelled due to duplicate test on this order 35 Testosterone, Total and Free, S was cancelled on 06/29/2014 at 08:21; Test cancelled by RBS rule <[email or web address]> Reason: Test TGRP is cancelled and replaced with Test TTFB due to being ordered with Test TTBS. Test Performed by: [facility], [place], [facility] [address] [place] [address] Yarn Preparation Supervisor: Sergio Mcdonough II, M.D., Ph.D. --- 06/29/14927 --- Testosterone previously reported as: Test not performed Cancelled due to duplicate test on this order 36 Testosterone, Total and Bioavail, S was cancelled on 06/29/2014 at 08:21; Test cancelled by RBS rule <[email or web address]> Reason: Test TTBS is cancelled and replaced with Test TTFB due to being ordered with Test TGRP. --- 06/29/14 0928 --- Bio Testost previously reported as: Test not performed Cancelled due to duplicate test on this order [address] RADHA REYES MD, FRCP FAX # [phone] ~~[phone].ORDERED BY DR RADHA REYES MD, FRCP FAX # [phone] 38 ADDITIONAL INFORMATION Testing performed by [facility]. 39 ADDITIONAL INFORMATION Testing performed by Liquid Chromatography-Tandem Mass Spectrometry (LC-MS/MS). Test Performed by: [place] [address] Yarn Preparation Supervisor: John Sanchez M.D. [address] RADHA REYES MD, FRCP FAX # [phone] 41 ADDITIONAL INFORMATION Testing performed by [facility]. 42 Testing performed by Liquid Chromatography-Tandem Mass Spectrometry (LC-MS/MS). Test Performed by: [place] [address] Yarn Preparation Supervisor: Giancarlo Toledo III, M.D. 43 Serum levels of PSA measured using the Miranda [place] DXI Hybritech immunoassay should not be interpreted as absolute evidence of the presence or absence of disease. The PSA value should be used in conjunction with other pertinent clinical diagnostic procedures. A PSA value in the range of 0.1 to 0.6 ng/ml is indeterminate if being used as an indicator of recurrent or residual disease. The values obtained with different assay methods or kits cannot be used interchangeably. 44 Because ethnic data is not always readily available, this report includes an eGFR for both -Americans and non- Americans. The National Kidney Disease Education Program (NKDEP) does not endorse the use of the MDRD equation for patients that are not between the ages of 18 and 70, are , have extremes of body size, muscle mass, or nutritional status, or are non- or non-. According to the National Kidney Foundation, irrespective of diagnosis, the stage of the disease is based on the level of kidney function: Stage Description GFR(mL/min/1.73 m(2)) 1 Kidney damage with normal or decreased GFR 90 2 Kidney damage with mild decrease in GFR 60-89 3 Moderate decrease in GFR 30-59 4 Severe decrease in GFR 15-29 5 Kidney failure <15 (or dialysis) 45 Desirable <150 Borderline high 150-199 High 200-499 Very High >500 46 Desirable <200 Borderline high 200-239 High >239 47 Low <40 Desirable: 40-60 High: >60 48 Desirable <100 Near Optimal 100-129 Borderline high 130-159 High 160-189 Very High >189 49 Testing performed by [facility]. 50 Testing performed by Liquid Chromatography-Tandem Mass Spectrometry (LC-MS/MS). Test Performed by: [place] [address] Yarn Preparation Supervisor: Giancarlo Toledo III, M.D. Procedures Date CPT Code Description Status Comment 01/08/2014 Colonoscopy Completed Negative, no polyps. Repeat 2019. ( Previous colonoscopy 2008) Encounters Type Date Location Provider CPT E/M Dx Office Visit 08/26/2017 1:45p [place] [address] J06.9 Office Visit 07/21/2017 4:30p [place] [address] M25.512 M25.511 Office Visit 06/18/2017 3:00p Main Office JOSE JUAN Wagner [address]27[address] I10 E29.1 Z12.5 Office Visit 05/05/2017 4:00p Main Office JOSE JUAN Wagner 63027 J01.90 Office Visit 12/28/2016 8:45a Main Office JOSE JUAN Wagner 54596 J30.9 Office Visit 09/18/2016 4:30p Main Office JOSE JUAN Wagner 60628 M54.2 M25.512 M25.511 Office Visit 06/05/2016 11:45a Main Office JOSE JUAN Wagner 25462 R10.9 Z11.59 E29.1 R53.83 Office Visit 05/07/2016 11:00a Main Office [facility] 24629 J01.90 Office Visit 03/27/2016 1:30p Main Office Srini Donovan III, [employer] [employer]-C 85755 S46.812A Office Visit 11/07/2015 10:30a [place] [address] J64 Office Visit 07/24/2015 10:00a [place] [address] B96.81 Office Visit 06/12/2015 11:15a Main Office [facility] 6[address]81 R10.9 Z11.59 Office Visit 02/07/2014 4:15p Main Office [facility] 98533 259.9 Office Visit 01/23/2014 4:30p Main Office [facility] 53474 401.1 307.49 Office Visit 12/15/2013 9:30a Main Office [facility] 04365 724.2 Office Visit 10/16/2013 4:00p Main Office [facility] [address]6597 401.1 259.9 Plan of Care 11/09/2017 - Dangelo Arzate, MDR35.8 Other polyuriaComments:Checked for glucose in urine, but there is none.N40.1 Benign prostatic hyperplasia with lower urinary tract sympNew Medication:Cialis 5 mgFlomax 0.4 mgComments:Will broaden treatment to include flomax.F52.21 Male erectile disorder
[2017-12-05 14:11] VITALS: BP 138/75
== END 2017-12-05 14:11 | disposition home or self-care (01) ==
LOC: ED 11:42
DX: T63.441A Toxic effect of venom of bees, accidental (unintentional), initial encounter (principal); L53.0 Toxic erythema; Y92.9 Unspecified place or not applicable; I10 Essential (primary) hypertension; Z79.899 Other long term (current) drug therapy
CPT/HCPCS: 99282; A9270-GY; J7512

== ENCOUNTER 2018-01-30 08:48 | Emergency (ER) | payer BC ==
--- OUTSIDE RECORDS SUMMARY | 2018-01-30 09:02 | XMS REPORT | Continuity of Care Document ---
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 PayID: [id number] TOMASA Contreras [address] Effective: 2015 Policy Number: [id number] [facility] Juan Méndezon Group Name: [employer] 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 [employer] Tobacco Use Start: Unknown Never Smoked Cigarettes ETOH Use Occasionally consumes beer Recreational Drug Use Denies Drug Use Tobacco Use Start: Unknown Patient has never smoked Enjoy Exercising Enjoys exercising Allergies, Adverse Reactions, Alerts Description No Known Drug Allergies Medications Medication Date Status Form Strength Qnty SIG Indications Ordering Provider Amoxicillin 11/22 Active Tablets 500mg 20tab 4 tab by Dangelo s mouth an Heetmadalynks hour prior , to dental procedures Omeprazole 11/[address] 40mg 30cap Take One K29.00 Shawnti s Capsule By Freeman Kingsley Mouth Every [employer] Day Cialis 11/09 Active Tablets 5mg 30tab 1 by mouth N40.1 Dangelo s once daily MD Carito Flomax 11/09 Active Capsules 0.4mg 30cap 1 by mouth N40.1 Dangelo s every day MD Carito Meloxicam 07/21 Active Tablets 15mg 30tab Take One M25.512 Dangelo s Tablet By Louieetdaphney Mouth Every , Day Epipen 2-Danny 12/28 Active Solution 0.3mg/0.3 2Pack use as Quynh Auto-Inject ML directed HIRAL [employer] Hydrocodone-Acet 09/18 Active Tablets 5-325mg 15tab 1 by mouth M54.2 Dangelo aminophen /2016 s every 6 [place] hours as , MD needed Fortesta 05/06 Active Gel 10mg/Act 60uni Apply 5 Srini /2015 (2%) ts Pumps Once [place] Daily To III, Thigh; [employer] Maximum Daily Dose=5 Pumps Fortesta 05/06 Active Gel 10mg/Act 60uni Apply 5 I10 Dangelo (2%) ts Pumps Once [place] Daily To , Thigh; Maximum Daily Dose=5 Pumps Amlodipine 10/20 Active Tablets 5mg 30tab Take One Quynh Bes s Tablet By Aron, Mouth Every [employer] Day Lisinopril 10/16 Active Tablets 20mg 30tab Take One Dangelo s Tablet By Carito Mouth Every , Day Proair Active Aerosol 108(90Bas as directed Unknown Respiclick /0000 e) mcg/Act Tessalon Perles 08/26 Hx Capsules 100mg 45cap take 1 Dangelo s capsule by [place] - mouth 3 MD 01/21 times per day as needed for cough Augmentin 05/05 Hx Tablets 875-125mg 20tab 1 by mouth J01.90 Quynh s twice a day Sallie Sharp for [employer] 06/18 infection, take for 10 days Cyclobenzaprine 09/18 Hx Tablets 5mg 30tab 1-2 by M54.2 Dangelo HCL s mouth three [place] - times a day , 08/26 for muscle spasm, may cause drowsiness Cialis 06/16 Hx Tablets 5mg 30tab 1 by mouth s every day Sallie Sharp [facility] 11/09 Azithromycin 05/07 Hx Tablets 250mg 6tabs take 2 J01.90 tablets Aron - today then [facility] 06/05 1 tablet daily for the next 4 days Androgel 04/29 Hx Gel 50mg/5GM 30pac apply the (1%) kets contents of Aron, [facility] packet to [facility] 06/05 the upper arm, shoulder or abdomen once daily at the same time. Tizanidine HCL 03/27 Hx Tablets 4mg 30tab take 05/11-1 S46.812A Srini s tablet by [place] - mouth three III, 03/12 times a day [facility] as needed for muscle spasm Androgel 11/03 Hx Gel 50mg/5GM 10gm Apply 4 (1%) pumps to [facility], - skin on [facility] 11/03 upper arms /2015 or abdomen daily. allow to dry before dressing Androgel Pump 11/03 Hx Gel 12.5mg/Ac 150gm apply 4 t (1%) pumps to [facility], arms or [facility]- 04/29 abdomen once daily allow to dry prior to dressing maximum daily dose=4 pumps Doxycycline 09/15 Hx Capsules 100mg 2caps 2 tabs by Quynh Hyclate /2015 mouth today Sallie Sharp [facility]- 06/05 Lansoprazole 07/[address] 30mg 28cap 1 tab by Nimo Pierson s mouth twice [place] - a day , 03/12 Amoxicillin 07/23 Hx Tablets 500mg 56tab 2 tab by Nimo Pierson s mouth twice [place] - a day , 06/05 Clarithromycin 07/23 Hx Tablets 500mg 28tab 1 take by Nimo Pierson s mouth [place] - tablet , 06/05 every hours for 14 days Protonix 06/[address] 20mg 30tab 1 by mouth s every day Aron, - [employer] 03/12 Ondansetron 06/12 Hx Tablets 4mg 10tab dissolve 1 R10.9 Dispers s tab by Aron, - mouth three [employer] 07/23 times a day as needed nausea Hydroxyzine HCL 01/23 Hx Tablets 25mg 45tab Take 1 To 2 401.1 s Tablets By Aron, - Mouth Every [employer] 07/23 6 Hours Needed For Anxiety/ Insomnia Cyclobenzaprine 12/15 Hx Tablets 5mg 30tab 1-2 by 724.2 Quynh HCL s mouth three Aron, - times a day [employer] 07/23 for /2015 spasm, may cause drowsiness Meloxicam 12/15 Hx Tablets 7.5mg 30tab 1 by mouth 724.2 s bid for Aron, - back pain, [employer] 07/23 take food Oxycodone-Acetam 12/15 Hx Tablets 5-325mg 15fif 1 - 2 tabs 724.2 Quynh ino teen by mouth Aron, - every 6 [employer] 01/23 hours needed severe pain Hyoscyamine 10/20 Hx Tablets 0.125mg 1 tablet q 4 hours prn Aron, - [employer] 07/23 Zofran 10/20 Hx Tablets 4mg Aron, - [employer] 01/23 Hydrocodone-Acet 10/20 Hx Tablets 5-325mg 16six Quynh aminophen teen Aron, - [employer] 01/23 Ibuprofen 10/20 Hx Tablets 200mg 3 tabs po q 6-8 hours Aron, - prn pain [employer] 01/23 Fortesta 10/16 Hx Gel 10mg/Act 60uni apply 5 I10 (2%) ts pumps once Aron, - daily to [employer] 11/03 thigh; /2016 maximum daily dose=5 pumps Dymista Hx Suspension 137-50mcg as directed Unknown /0000 /Act - 03/12 Immunizations CPT Code Status Date Vaccine Lot # [id number] Given Unknown Tetanus [id number] Refused 11/09/2017 Influenza Virus Vaccine, Quadrivalent, 3 Yr > Quad , Preserv Free [id number] Refused 06/05/2016 Influenza Virus Vaccine, Quadrivalent, 3 Yr > Quad , Preserv Free [id number] Refused 05/07/2016 Influenza Virus Vaccine, Quadrivalent, 3 Yr > Quad , Preserv Free Vital Signs Date Vital Result Comment 01/21/2018 11:29am Weight 289.00 lb Weight 131.090 kg BP Systolic 132 mmHg BP Diastolic 88 mmHg Heart Rate 80 /min Body Temperature 98.0 F O2 % BldC Oximetry 98 % 11/22/2017 3:44pm Weight 292.00 lb Weight 132.451 kg BP Systolic 128 mmHg BP Diastolic 88 mmHg Heart Rate 72 /min Body Temperature 98.3 F Respiratory Rate 18 /min O2 % BldC Oximetry 97 % 11/09/2017 2:52pm Weight 294.00 lb Weight 133.358 kg BP Systolic 148 mmHg BP Diastolic 91 mmHg Heart Rate 76 /min Body Temperature 97.7 F Height 71 inches 5'11" BMI (Body Mass Index) 41.0 kg/m2 O2 % BldC Oximetry 97 % 08/26/2017 1:45pm Weight 301.00 lb Weight 136.534 kg BP Systolic 148 mmHg BP Diastolic 88 mmHg Heart Rate 92 /min Body Temperature 99.0 F Respiratory Rate 16 /min O2 % BldC Oximetry 98 % 07/21/2017 4:31pm Weight 299.00 lb Weight 135.626 kg BP Systolic 140 mmHg BP Diastolic 78 mmHg Heart Rate 82 /min Body Temperature 97.3 F Respiratory Rate 16 /min O2 % BldC Oximetry 98 % 06/18/2017 2:59pm Weight 300.00 lb Weight 136.080 kg BP Systolic 138 mmHg BP Diastolic 78 mmHg Heart Rate 80 /min Body Temperature 97.1 F Respiratory Rate 16 /min O2 % BldC Oximetry 98 % 05/05/2017 4:13pm Weight 295.00 lb Weight 133.812 kg BP Systolic 142 mmHg BP Diastolic 82 mmHg Heart Rate 80 /min Body Temperature 97.5 F Respiratory Rate 15 /min O2 % BldC Oximetry 98 % 03/12/2017 11:21am Weight 250.00 lb Weight 113.400 kg BP Systolic 138 mmHg BP Diastolic 80 mmHg Heart Rate 81 /min Body Temperature 97.5 F Right Visual Acuity Distance 20/20 Left Visual Acuity Distance 20/20 Both Visual Acuity Distance 20/20 Right ear audiology results PASS Left ear audiology results PASS 12/28/2016 8:47am Weight 273.00 lb Weight 123.833 kg BP Systolic 138 mmHg BP Diastolic 80 mmHg Heart Rate 84 /min Body Temperature 97.5 F Respiratory Rate 20 /min 09/18/2016 4:26pm Weight 286.00 lb Weight 129.730 kg BP Systolic 140 mmHg BP Diastolic 90 mmHg Heart Rate 64 /min Body Temperature 98.3 F Respiratory Rate 14 /min 06/05/2016 11:46am Weight 286.00 lb Weight 129.730 kg BP Systolic 138 mmHg BP Diastolic 90 mmHg Heart Rate 73 /min Body Temperature 98.0 F Respiratory Rate 14 /min O2 % BldC Oximetry 97 % 05/07/2016 11:01am Weight 292.00 lb Weight 132.451 kg BP Systolic 120 mmHg BP Diastolic 80 mmHg Heart Rate 73 /min Body Temperature 97.7 F Respiratory Rate 16 /min O2 % BldC Oximetry 98 % 03/27/2016 1:29pm Weight 287.00 lb Weight 130.183 kg BP Systolic 150 mmHg BP Diastolic 94 mmHg Heart Rate 92 /min 11/07/2015 10:41am Weight 281.00 lb Weight 127.462 kg BP Systolic 142 mmHg BP Diastolic 92 mmHg Heart Rate 56 /min Body Temperature 99.0 F O2 % BldC Oximetry 98 % 07/24/2015 9:53am Weight 279.00 lb Weight 126.554 kg BP Systolic 128 mmHg BP Diastolic 86 mmHg Heart Rate 64 /min Body Temperature 98.3 F 06/12/2015 11:49am Weight 289.00 lb Weight 131.090 kg BP Systolic 160 mmHg BP Diastolic 94 mmHg Heart Rate 64 /min 02/07/2014 4:19pm Weight 282.00 lb Weight 127.915 kg BP Systolic 138 mmHg BP Diastolic 88 mmHg Heart Rate 72 /min 01/23/2014 4:32pm Weight 288.00 lb Weight 130.637 kg BP Systolic 142 mmHg BP Diastolic 92 mmHg Heart Rate 72 /min 12/15/2013 9:57am Weight 282.00 lb Weight 127.915 kg BP Systolic 142 mmHg BP Diastolic 84 mmHg Heart Rate 68 /min 10/16/2013 4:10pm Weight 281.00 lb Weight 127.462 kg BP Systolic 152 mmHg BP Diastolic 88 mmHg Heart Rate 72 /min Height 71.5 inches 5'11.50" BMI (Body Mass Index) 38.6 kg/m2 Results Test Date Facility Test Result H/L Range Note Laboratory test 11/09/2017 [facility] PSA Screening 0.522 ng/mL 0-4.000 1 finding [phone] Urine DIP 11/09/2017 In House Lab Leukocytes + Neg (607)- - Urine Nitrites NEG Neg Urobilinogen NORM Norm Total Protein, Urine TRACE Neg Urine pH 7 High 5-6 Urine Blood NEG Neg Specific [place] 1.015 1.01-1.02 Urine Ketones NEG Neg Urine Bilirubin NEG Neg Urine Glucose NORM Norm CBC Auto Diff 06/18/2017 [facility] White Blood 8.9 10^3/uL 3.5-10.8 2 [phone] Count Red Blood Count 5.19 10^6/uL 4.0-5.4 Hemoglobin 16.3 g/dL 14.0-18.0 Hematocrit 47 % 42-52 Mean Corpuscular Volume 90 fL 80-94 Mean Corpuscular Hemoglobin 31 pg 27-31 Mean Corpuscular HGB Conc 35 g/dL 31-36 Red Cell Distribution Width 13 % 10.5-15 Platelet Count 215 10^3/uL 150-450 Mean Platelet Volume 9 um3 7.4-10.4 Abs Neutrophils 4.8 10^3/uL 1.5-7.7 Abs Lymphocytes 2.8 10^3/uL 1.0-4.8 Abs Monocytes 0.8 10^3/uL 0-0.8 Abs Eosinophils 0.4 10^3/uL 0-0.6 Abs Basophils 0.1 10^3/uL 0-0.2 Abs Nucleated RBC 0 10^3/uL Granulocyte % 53.8 % 38-83 Lymphocyte % 31.9 % 25-47 Monocyte % 9.2 % High 1-9 Eosinophil % 4.1 % 0-6 Basophil % 1.0 % 0-2 Nucleated Red Blood Cells % 0.3 Comp Metabolic Panel 06/18/2017 [facility] Sodium 138 mmol/L 133-145 [phone] Potassium 4.4 mmol/L 3.5-5.0 Chloride 101 mmol/L 101-111 Co2 Carbon Dioxide 31 mmol/L 22-32 Anion Gap 6 mmol/L 2-11 Glucose 92 mg/dL 70-100 Blood Urea Nitrogen 14 mg/dL 6-24 Creatinine 1.04 mg/dL 0.67-1.17 BUN/Creatinine Ratio 13.5 8-20 Calcium 9.3 mg/dL 8.6-10.3 Total Protein 7.3 g/dL 6.4-8.9 Albumin 4.4 g/dL 3.2-5.2 Globulin 2.9 g/dL 2-4 Albumin/Globulin Ratio 1.5 1-3 Total Bilirubin 0.50 mg/dL 0.2-1.0 Alkaline Phosphatase 42 U/L 34-104 Alt 15 U/L 7-52 Ast 15 U/L 13-39 Egfr Non- 73.6 >60 Egfr 94.7 >60 3 Lipid Profile 06/18/2017 [facility] Triglycerides 102 mg/dL 4 (Trig/Chol/HDL) [phone] Cholesterol 199 mg/dL 5 HDL Cholesterol 44.7 mg/dL 6 LDL Cholesterol 134 mg/dL 7 Testosterone Free 06/18/2017 [facility] Free 7.73 3.87-14.7 8 & Total [phone] Testosterone ng/dL ng/dl Testosterone 368 ng/dL 240-950 9 Laboratory test 06/18/2017 [facility] PSA Screening 0.493 ng/mL 0-4.000 10 finding [phone] Urine DIP 03/12/2017 In House Lab Leukocytes NEG Neg (607)- - Urine Nitrites NEG Neg Urobilinogen NORM Norm Total Protein, Urine NEG Neg Urine pH 6 5-6 Urine Blood NEG Neg Specific [place] 1.015 1.01-1.02 Urine Ketones NEG\\ Neg Urine Bilirubin NEG Neg Urine Glucose NORM Norm Comp Metabolic Panel 06/05/2016 [facility] Sodium 138 mmol/L 133-145 [phone] Potassium 4.1 mmol/L 3.5-5.0 Chloride 103 mmol/L [...] >60 Egfr 118.3 >60 11 Laboratory test 06/05/2016 [facility] Lipase 39 U/L 11.0-82.0 12 finding [phone] Amylase 42 U/L 29-103 13 Hepatitis C Antibody Nonreactive Nonreactive 14 Testosterone 06/05/2016 [facility] Testosterone 584 ng/dL 240-950 15 Profile [phone] Free Testosterone ng/dl 20.4 ng/dL 3.87-14.7 16 Bioavailable Testosterone 146 ng/dL 50-190 17 Laboratory test 06/05/2016 [facility] Reference Lab See Comment 18 finding [phone] Test CBC Auto Diff 06/05/2016 [facility] White Blood 7.2 10^3/uL 3.5-1 [phone] Count 0.8 Red Blood Count 4.96 10^6/uL 4.0-5.4 Hemoglobin [...] Red Blood Cells % 0.1 Laboratory test 02/21/2016 [facility] PSA Screening 0.304 0-4.000 19 finding [phone] ng/mL Testosterone 02/21/2016 [facility] Free 5.06 3.87- 14.7 20 Free & Total [phone] Testosterone ng/dL ng/dl Testosterone 220 ng/dL 240-950 21 Laboratory test 02/05/2016 [facility] [place] Pylori Negative Negative 22 finding [phone] Antigen- Stool CBC Auto Diff 06/12/2015 [facility] White Blood 5.7 10^3/uL 3.5-10.8 [phone] Count Red Blood Count 5.33 10^6/uL 4.0-5.4 Hemoglobin [...] Cells % 0.2 Comp Metabolic Panel 06/12/2015 [facility] Sodium 139 mmol/L 133-145 [phone] Potassium 4.3 mmol/L 3.5-5.0 Chloride 104 mmol/L [...] >60 Egfr 117.2 >60 23 Laboratory test 06/12/2015 [facility] Lipase 40 U/L 11.0-82.0 finding [phone] Amylase 47 U/L 29-103 H.Pylori Igm 06/12/2015 [facility] Helicobacter Negative Negative AB [phone] pylori IgM Ab H pylori IgM AB Index 9.01 24 Laboratory 06/12/2015 [facility] Hepatitis C Nonreactive Nonreactive test finding [phone] Antibody H Pylori Iga 06/12/2015 [facility] Helicobacter Negative Negative [phone] pylori IgA Ab H pylori IgA Ab Index 2.54 25 H.Pylori Igg 06/12/2015 [facility] Helicobacter Positive Negative 26 AB [phone] pylori IgG Ab H pylori IgG AB Index 12.80 27 Laboratory test 11/19/2014 [facility] LH (Lutenizing < 0.2 Low 2-12 finding [phone] Hormone) ?IU/mL Testosterone Free 11/19/2014 [facility] Free 20 ng/ dL 9-30 28 & Total [phone] Testosterone ng/dl Testosterone 623 ng/dL 240-950 29 Laboratory test 11/19/2014 [facility] Testosterone 463.76 240-950 finding [phone] Total ng/dL PSA Screening 0.467 ng/mL 0-4.000 30 Testosterone Free & 06/27/2014 [facility] Free Testosterone TNP 31 Total [phone] ng/dl Testosterone TNP Testosterone Total 06/27/2014 [facility] Testosterone TNP () 32 Bioavail [phone] Bioavailable Testosterone TNP () 33 Testosterone Free & 06/27/2014 [facility] Free Testosterone TNP () 34 Total [phone] ng/dl Testosterone TNP Testosterone Total 06/27/2014 [facility] Testosterone TNP 35 Bioavail [phone] Bioavailable Testosterone TNP 36 Laboratory test 06/27/2014 [facility] Luteinizing 2.6 IU/mL 2-12 finding [phone] Hormone Testosterone Free 05/18/2014 [facility] Free 19 ng/ dL 9-30 37, 38 & Total [phone] Testosterone ng/dl Testosterone 595 ng/dL 240-950 39 Laboratory test 05/18/2014 [facility] Luteinizing 0.2 IU/mL Low 2-12 40 finding [phone] Hormone Testosterone Free 02/01/2014 [facility] Free Testosterone 3.0 ng/dL 9-30 41 & Total [phone] ng/dl Testosterone 119 ng/dL 240-950 42 Laboratory test 02/01/2014 [facility] PSA Screening 0.293 0-4.000 43 finding [phone] ng/mL CBC Auto Diff 01/17/2014 [facility] White Blood 6.7 4.8-10.8 [phone] Count 10^3/uL Red Blood Count 4.80 10^6/uL 4.0-5.4 Hemoglobin [...] Cells % 0 Comp Metabolic Panel 01/17/2014 [facility] Sodium 138 mmol/L 133-145 [phone] Potassium 4.1 mmol/L 3.7-5.6 Chloride 105 mmol/L [...] >60 Egfr 106.2 >60 44 Lipid Profile 01/17/2014 [facility] Triglycerides 104 mg/dL 45 (Trig/Chol/HDL) [phone] Cholesterol 186 mg/dL 46 HDL Cholesterol 43.0 mg/dL 47 LDL Cholesterol 122 mg/dL 48 Testosterone Free 01/17/2014 [facility] Free Testosterone 4.0 ng/dL 9-30 49 & Total [phone] ng/dl Testosterone 167 ng/dL 240-950 50 1 Serum levels of PSA measured using the Miranda [place] DXI Hybritech immunoassay should not be interpreted [...] or kits cannot be used interchangeably. 2 [id number] 3 Because ethnic data is not always [...] developed and its performance characteristics determined by [facility] in a manner consistent with CLIA requirements. This test has not been cleared or approved by the U.S. Food and Drug Administration. 9 ADDITIONAL INFORMATION Testing performed by Liquid Chromatography-Tandem Mass Spectrometry (LC-MS/MS). This test was developed and its performance characteristics determined by [facility] in a manner consistent with CLIA requirements. This test has not been cleared or approved by the U.S. Food and Drug Administration. Test Performed by: [facility] [address] [place] [address] 10 Serum levels of PSA measured using [...] 5 Kidney failure <15 (or dialysis) 12 [id number] 13 [id number] 14 [id number] 15 ADDITIONAL INFORMATION Testing performed by Liquid Chromatography-Tandem Mass Spectrometry (LC-MS/MS). This test was developed and its performance characteristics determined by [facility] in a manner consistent with CLIA requirements. This test has not been cleared or approved by the U.S. Food and Drug Administration. 16 ADDITIONAL INFORMATION Testing performed by Equilibrium Dialysis. This test was developed and its performance characteristics determined by [facility] in a manner consistent with CLIA requirements. This test has not been cleared or approved by the U.S. Food and Drug Administration. 17 ADDITIONAL INFORMATION Testing performed by Differential Precipitation. This test was developed and its performance characteristics determined by [facility] in a manner consistent with CLIA requirements. This test has not been cleared or approved by the U.S. Food and Drug Administration. Test Performed by: [facility] [place] [address] Burial Vault Setter: Sergio Mcdonough II, M.D., Ph.D. 18 Test Result Flag Unit RefValue TSH, Sensitive, S 0.8 mIU/L 0.3-4.2 Test Performed by: [place] [address] Burial Vault Setter: Sergio Mcdonough II, M.D., Ph.D. 19 Serum levels of PSA measured using the Miranda [place] DXI Hybritech immunoassay should not be interpreted [...] developed and its performance characteristics determined by [facility] in a manner consistent with CLIA requirements. This test has not been cleared or approved by the U.S. Food and Drug Administration. 21 ADDITIONAL INFORMATION Testing performed by Liquid Chromatography-Tandem Mass Spectrometry (LC-MS/MS). This test was developed and its performance characteristics determined by [facility] in a manner consistent with CLIA requirements. This test has not been cleared or approved by the U.S. Food and Drug Administration. Test Performed by: [place] [address] Burial Vault Setter: Sergio Mcdonough II, M.D., Ph.D. 22 Test Performed by: [place] [address] Burial Vault Setter: Sergio Mcdonough II, M.D., Ph.D. 23 Because [...] of <36.00 are negative. Test Performed by: [place] [address] Burial Vault Setter: Sergio Mcdonough II, M.D., Ph.D. 25 Results with Index Values of <18.00 are negative. Test Performed by: [place] [address] Burial Vault Setter: Sergio Mcdonough II, M.D., Ph.D. 26 The presence of IgG-class antibody to H. pylori may indicate current or past infection. A positive antibody result alone is not diagnostic for current H. pylori infection. Acute infection can be diagnosed using the H. pylori urea breath test or the H. pylori stool antigen test. 27 Results with Index Values of=>8.95 are positive. Test Performed by: [facility] [place] [address] Burial Vault Setter: Sergio Mcdonough II, M.D., Ph.D. 28 ADDITIONAL INFORMATION Testing performed by Equilibrium Dialysis. 29 ADDITIONAL INFORMATION Testing performed by Liquid Chromatography-Tandem Mass Spectrometry (LC-MS/MS). Test Performed by: [place] [address] Burial Vault Setter: Sergio Mcdonough II, M.D., Ph.D. 30 Serum levels of PSA measured using the Miranda ICAgen DXI Hybritech immunoassay should not be interpreted [...] to being ordered with Test TTBS. --- 06/29/1428 --- Free Test ng/dl previously reported as: Test not performed Cancelled due to duplicate test on this order 32 Testosterone, Total, Bio, Free, S was cancelled on 02/14/2016 at 16:09; Test ordered in error. Communication error between [facility] [employer] and [facility] [employer]. --- 02/14/16 2823 --- Testosterone previously reported as: Test not performed Testosterone, Total and Free, S was cancelled on 06/29/2014 at 08:21; Test cancelled by RBS rule <TTBS1> Reason: Test TGRP is cancelled and replaced with Test TTFB due to being ordered with Test TTBS. Test Performed by: [place] [id number] Burial Vault Setter: Sergio Mcdonough II, M.D., Ph.D. --- 06/29/14927 --- Testosterone previously reported as: Test not performed Cancelled due to duplicate test on this order 33 Testosterone, Total, Bio, Free, S was cancelled on 02/14/2016 at 16:09; Test ordered in error. Communication error [facility] and [facility] [employer]. Test Performed by: [place] [id number] Burial Vault Setter: Sergio Mcdonough II, M.D., Ph.D. --- 02/14/161712 [...] Test ordered in error. Communication error between [facility] and [facility] [employer]. --- 02/14/161712 --- Free Test ng/dl previously [...] ordered with Test TTBS. Test Performed by: [place] [address] Burial Vault Setter: Sergio Mcdonough II, M.D., Ph.D. --- 06/29/14927 [...] DR RADHA REYES MD, FRCP FAX # [phone] ~~[phone].ORDERED BY DR RADHA REYES MD, FRCP FAX # [phone] ADDITIONAL INFORMATION Testing performed by [facility]. 39 ADDITIONAL INFORMATION Testing performed by Liquid Chromatography-Tandem Mass Spectrometry (LC-MS/MS). Test Performed by: [place] [address] Burial Vault Setter: John Sanchez M.D. [address] RADHA REYES MD, FR FAX # [phone] 41 ADDITIONAL INFORMATION Testing performed by [facility]. 42 Testing performed by Liquid Chromatography-Tandem Mass Spectrometry (LC-MS/MS). Test Performed by: [place] [address] Burial Vault Setter: Giancarlo Toledo III, M.D. 43 Serum levels of PSA measured using the [employer] DXI Hybritech immunoassay should not be interpreted [...] Chromatography-Tandem Mass Spectrometry (LC-MS/MS). Test Performed by: [place] [address] Burial Vault Setter: Giancarlo Toledo III, M.D. Procedures Date Code Description Status 01/08/2014 [id number] Colonoscopy Completed Encounters Type Date Location Provider Dx Diagnosis Office Visit 11/22/2017 Main Office Marlin Kingsley, K29.00 Acute gastritis 3:30p [employer] without bleeding Office Visit 11/09/2017 Main Office Dangelo Arzate, R35.8 Other polyuria 2:45p N40.1 Benign prostatic hyperplasia with lower urinary tract symp F52.21 Male erectile disorder Office Visit 08/26/2017 1:45p Main Office Dangelo Heetderks, J06.9 Acute upper MD respiratory infection, unspecified Office Visit 07/21/2017 4:30p Main Office Dangelo Arzate, M25.512 Pain in left MD shoulder M25.511 Pain in right shoulder Office Visit 06/18/2017 3:00p Main Office Quynh Sharp, I10 Essential ( primary) [employer] hypertension E29.1 Testicular hypofunction Z12.5 Encounter for screening for malignant neoplasm of prostate Office Visit 05/05/2017 4:00p Main Office Quynh Sharp, J01.90 Acute sinusitis, [employer] unspecified Office Visit 12/28/2016 8:45a Main Office Quynh Sharp J30.9 Allergic rhinitis, [employer] unspecified Office Visit 09/18/2016 4:30p Main Office Quynh Sharp, M54.2 Cervicalgia [employer] M25.512 Pain in left shoulder M25.511 Pain in right shoulder Office Visit 06/05/2016 11:45a Main Office Quynh Sharp, R10.9 Unspecified [employer] abdominal pain Z11.59 Encounter for screening for other viral diseases E29.1 Testicular hypofunction R53.83 Other fatigue Office Visit 05/07/2016 Main Office Quynh Sharp, J01.90 Acute sinusitis , 11:00a [employer] unspecified Office Visit 03/27/2016 Main Office Srini Donovan S46.812A Strain of 1:30p III, [employer] musc/fasc/tend at shldr/up arm, left arm, init Office Visit 11/07/2015 Main Office Dangelo Ayala Unspecified 10:30a MD Carito pneumoconiosis Office Visit 07/24/2015 Main Office Dangelo B96.81 Helicobacter pylori 10:00a MD Carito as the cause of diseases classd elswhr Office Visit 06/12/2015 Main Office Quynh Sharp, R10.9 Unspecified 11:15a [employer] abdominal pain Z11.59 Encounter for screening for other viral diseases Office Visit 02/07/2014 4:15p Main Office Quynh Sharp, 259.9 Endocrine Disorders [employer] Other Unspec Office Visit 01/23/2014 4:30p Main Office Quynh Sharp, 401.1 Hypertension Benign [employer] 307.49 Sleep Disorder Other Office Visit 12/15/2013 9:30a Main Office Quynh Sharp, 724.2 Lumbago [employer] Office Visit 10/16/2013 4:00p Main Office Quynh Sharp, 401.1 Hypertension Benign [employer] 259.9 Endocrine Disorders Other Unspec Plan of Treatment 01/21/2018 - Dangelo Arzate, Z96.641 Presence of right artificial hip jointComments:I refilled his amoxicillin. His orthopedic surgeon wants him prophylaxed forever during dental ivbuycaxbgO40.81 PleurodyniaComments:he has pleuritic chest pain. It seems to be resolving at this point. His lung exam is normal. I don't think any further workup is needed.
[2018-01-30 10:17] LABS: ABS Basophils 0 10^3/ul (0-0.2); ABS Eosinophils 0.2 10^3/ul (0-0.6); ABS Lymphocytes 1.3 10^3/ul (1.0-4.8); ABS Monocytes 0.7 10^3/ul (0-0.8); ABS Neutrophils 4.2 10^3/ul (1.5-7.7); ABS Nucleated RBC 0 10^3/ul; Eosinophil % 2.9 % (0-6); Hematocrit 45 % (42-52); Hemoglobin 15.4 g/dl (14.0-18.0); Lymphocyte % 20.5 % (25-47); Mean Corpuscular HGB Conc 34 g/dl (31-36); Mean Corpuscular Hemoglobin 31 pg (27-31); Mean Corpuscular Volume 90 fL (80-94); Mean Platelet Volume 8.4 um3 (7.4-10.4); Nucleated Red Blood Cells % 0; Platelet Count 191 10^3/ul (150-450); Red Cell Distribution Width 13 % (10.5-15); White Blood Count 6.5 10^3/ul (3.5-10.8)
[2018-01-30 10:30] LABS: EGFR Non-African American 81.4 (>60)
[2018-01-30 11:34] LABS: Urine Appearance Clear; Urine Blood Negative (Negative); Urine Color Yellow; Urine Ketones Negative (Negative); Urine Protein Negative (Negative); Urine Specific Gravity 1.013 (1.010-1.030); Urine Urobilinogen Negative (Negative)
--- NOTE | 2018-01-30 11:49 | RAD ---
HISTORY: Right upper quadrant pain. COMPARISONS: Similar examination July 17, 2015 TECHNIQUE: Multiple transverse and longitudinal ultrasound images were obtained of the right upper quadrant. FINDINGS: LIVER: In the right lobe of the liver there is a hyperechogenic avascular subcapsular focus measuring 0.9 x 1.1 x 1.2 cm that is not changed from the previous ultrasound. Otherwise the liver is normal in dimensions and echogenicity. Normal hepatic and portal venous blood flow is duplicated with color flow imaging. There is no gross intrahepatic biliary duct dilatation. GALLBLADDER AND EXTRAHEPATIC BILIARY DUCT: The gallbladder is normal in appearance without intraluminal stones or other soft tissue masses. There is no pericholecystic fluid or gallbladder wall thickening. The common bile duct measures a maximum diameter of 3 mm. PANCREAS: The portions of the pancreas not obscured by bowel gas are normal in appearance. RIGHT KIDNEY: The right kidney is normal in size, morphology and echogenicity. AORTA AND IVC: The visualized portions are normal in appearance and not pathologically dilated. IMPRESSION: STABLE SUBCAPSULAR RIGHT HEPATIC LOBE HEMANGIOMA IN THIS OTHERWISE NORMAL RIGHT UPPER QUADRANT ULTRASOUND.
[2018-01-30] MEDS ORDERED: Iohexol 300* (CONTRAST) 10 ML SDV IV ONE (12:17)
--- NOTE | 2018-01-30 14:02 | RAD ---
CLINICAL HISTORY: Right upper quadrant pain. Relevant surgical history includes bilateral inguinal and umbilical hernia repairs as well as left total hip arthroplasty COMPARISON: CT abdomen pelvis dated May 29, 2013 TECHNIQUE: Contrast enhanced CT examination of the abdomen and pelvis from the lung bases through the initial tuberosities. The patient received 150 mL Omnipaque 300 intravenously prior to imaging.The patient received oral contrast as well prior to imaging. FINDINGS: VISUALIZED LUNG BASES: The visualized lung bases are grossly clear. There is no pleural effusion. ABDOMEN AND PELVIS: The liver is homogenously hypodense relative to the spleen. The spleen, pancreas and adrenal glands are grossly normal in appearance. The gallbladder is normal. The kidneys are normal in appearance without focal mass, calcification or signs of hydronephrosis. The oral contrast has progressed as far as the transverse colon. In the region of the gastric pylorus there is circumferential wall thickening measuring just under 1 cm depicted well in the axial and coronal planes (image 22 and 36, respectively). The small and large bowel are not distended. The patient's normal appendix is identified in the right lower quadrant measuring 4 mm in diameter with a small amount of contrast in the lumen.. There is no gross retroperitoneal or mesenteric lymphadenopathy. The pelvic viscera is normal in appearance. The abdominal aorta and iliac arteries are normal in course and diameter. Degenerative changes include multilevel loss of intervertebral disc height involving the lower thoracic and lumbar spine. The left hip prosthesis is anatomically aligned. IMPRESSION: 1. The liver is homogenously hypodense relative to the spleen which could be seen in the setting of hepatic steatosis or other chronic infiltrative disease. 2. There is the appearance of circumferential wall thickening at the gastric pylorus but this may simply be due to appropriate contraction at the junction between the stomach and duodenum. 3. Otherwise there are no CT apparent findings that would account for the patient's current clinical presentation.
[2018-01-30 14:18] VITALS: BP 129/76
--- NOTE | 2018-01-30 14:53 | ED ---
Abdominal Pain/Male - HPI Summary HPI Summary: Patient is a 57-year-old male with a history of hypertension and GERD presenting to the ED with a 3 week history of intermittent RUQ pain wrapping around to the right lower back. He also is endorsing pain which radiates over into the LUQ intermittently, but is not as common as his RUQ pain. He states he was seen by his PCP, but no imaging was completed. His PCP thought it might be pleurisy, however he denies any cough, chest pain or pain to the epigastric region radiating to the back. He has never had this pain before. Symptoms are worse after eating, better without eating and better with rest. He does not note a difference between fatty foods. He denies any urinary symptoms, constipation, diarrhea, nausea. Denies any headache. He endorses early satiety over the past 3 weeks, denies any known weight loss. Last BM was this morning and normal. He states he has also been under a lot of stress recently with his job. - History of Current Complaint Chief Complaint: EDAbdPain Stated Complaint: RT RIB PAIN Time Seen by Provider: 01/30/18 09:24 Hx Obtained From: Patient Onset/Duration: Sudden Onset Timing: Constant Severity Initially: Moderate Severity Currently: Moderate Pain Intensity: 0 Pain Scale Used: 0-10 Numeric Location: Discrete At: RUQ Radiates: Yes Radiates to: Other - right flank Character: Cramping Aggravating Factor(s): Food Alleviating Factor(s): NPO Associated Signs And Symptoms: Positive: Negative. Negative: Fever, Cough, Chest Pain, Back Pain, Constipation, Urinary Symptoms, Decreased Appetite, Vomiting, Diarrhea - Risk Factors Testicular Torsion: Negative Cardiac Risk Factors: Hypertension - Allergies/Home Medications Allergies/Adverse Reactions: Allergies Allergy/AdvReac Type Severity Reaction Status Date / Time bee venom protein (honey bee) Allergy Rash And Verified 01/30/18 08:50 Itching Home Medications: Home Medications Omeprazole 40 mg PO DAILY 01/30/18 [History Confirmed 01/30/18] PMH/Surg Hx/FS Hx/Imm Hx Previously Healthy: Yes Endocrine/Hematology History: Denies: Hx Diabetes Cardiovascular History: Reports: Hx Hypertension - MEDS Denies: Hx Congestive Heart Failure Respiratory History: Reports: Hx Asthma, Other Respiratory Problems/Disorders - anaphylaxis w/ bee stings History: Denies: Hx Renal Disease Musculoskeletal History: Reports: Hx Arthritis - RIGHT SHOULDER, HX OF ARTHRTIS IN LEFT HIP - TOTAL REPLACEMENT 2009, Other Musculoskeletal History - right shoulder , left hip replacement Sensory History: Reports: Hx Contacts or Glasses - READING GLASSES Denies: Hx Hearing Aid Opthamlomology History: Reports: Hx Contacts or Glasses - READING GLASSES - Surgical History Surgery Procedure, Year, and Place: 2005 [place] [facility] [place] [facility] [place] [facility] [place] TONSILLECTOMY, [facility]. ROTATOR CUFF RIGHT SHOULDER Hx Anesthesia Reactions: No - Immunization History Date of Tetanus Vaccine: 2010 Date of Influenza Vaccine: Fall 2012 Hx Pertussis Vaccination: No Immunizations Up to Date: Yes Infectious Disease History: No Infectious Disease History: Denies: Traveled Outside the [place] in Last 30 Days - Family History Known Family History: Positive: Other - Mother with MS, Father with colon cancer - Social History Occupation: Employed Full-time Lives: With Family Alcohol Use: Occasionally Hx Substance Use: No Substance Use Type: Reports: None Hx Tobacco Use: No Smoking Status (MU): Never Smoked Tobacco Review of Systems Constitutional: Negative Negative: Fever, Chills, Fatigue, Skin Diaphoresis Negative: Palpitations, Chest Pain Negative: Shortness Of Breath, Cough Positive: Abdominal Pain. Negative: Vomiting, Diarrhea, Nausea Genitourinary: Negative Positive: no symptoms reported, see HPI Negative: Arthralgia, Myalgia Skin: Negative Neurological: Negative All Other Systems Reviewed And Are Negative: Yes Physical Exam Triage Information Reviewed: Yes Vital Signs On Initial Exam: Initial Vitals Temp Pulse Resp BP Pulse Ox 97.2 F 75 14 176/99 99 01/30/18 08:50 01/30/18 08:50 01/30/18 08:50 01/30/18 08:50 01/30/18 08:50 Vital Signs Reviewed: Yes Appearance: Positive: Well-Appearing, Well-Nourished Skin: Positive: Warm, Skin Color Reflects Adequate Perfusion Head/Face: Positive: Normal Head/Face Inspection Eyes: Positive: EOMI, ARDEN, Conjunctiva Clear Neck: Positive: Supple, No Lymphadenopathy Respiratory/Lung Sounds: Positive: Clear to Auscultation, Breath Sounds Present Cardiovascular: Positive: RRR, Pulses are Symmetrical in both Upper and Lower Extremities Abdomen Description: Positive: Nontender, Soft, Other: - negative restrepo's sign. Negative: CVA Tenderness (R), CVA Tenderness (L), Distended, Guarding, McBurney's Point Tenderness Musculoskeletal: Positive: Normal, Strength/ROM Intact Neurological: Positive: Sensory/Motor Intact, Alert, Oriented to Person Place, Time, Speech Normal Psychiatric: Positive: Normal, Affect/Mood Appropriate AVPU Assessment: Alert Diagnostics - Vital Signs Vital Signs Temp Pulse Resp BP Pulse Ox 01/30/18 14:18 97.6 F 76 15 129/76 97 01/30/18 14:00 71 15 95 01/30/18 13:52 77 18 132/84 96 01/30/18 13:22 80 15 141/91 96 01/30/18 13:10 82 20 95 01/30/18 12:52 81 20 160/89 96 01/30/18 12:22 76 14 142/105 96 01/30/18 12:00 74 16 96 01/30/18 11:52 80 17 145/98 95 01/30/18 11:26 77 16 142/87 97 01/30/18 11:00 83 16 98 01/30/18 10:52 71 13 146/88 96 01/30/18 10:22 70 17 136/82 95 01/30/18 10:00 69 12 94 01/30/18 09:52 78 15 142/82 94 01/30/18 09:22 74 18 162/93 96 01/30/18 09:20 127 01/30/18 08:50 97.2 F 75 14 176/99 99 - Laboratory Lab Results: Lab Results 01/30/18 01/30/18 01/30/18 Range/Units 09:56 09:56 09:56 WBC 6.5 (3.5-10.8) 10^3/ul RBC 5.00 (4.00-5.40) 10^6/ul Hgb 15.4 (14.0-18.0) g/dl Hct 45 (42-52) % MCV 90 (80-94) fL MCH 31 (27-31) pg MCHC 34 (31-36) g/dl RDW 13 (10.5-15) % Plt Count 191 (150-450) 10^3/ul MPV 8.4 (7.4-10.4) um3 Neut % (Auto) 64.8 (38-83) % Lymph % (Auto) 20.5 L (25-47) % [place] % (Auto) 11.4 H (0-7) % Eos % (Auto) 2.9 (0-6) % Baso % (Auto) 0.4 (0-2) % Absolute Neuts (auto) 4.2 (1.5-7.7) 10^3/ul Absolute Lymphs (auto) 1.3 (1.0-4.8) 10^3/ul Absolute Monos (auto) 0.7 (0-0.8) 10^3/ul Absolute Eos (auto) 0.2 (0-0.6) 10^3/ul Absolute Basos (auto) 0 (0-0.2) 10^3/ul Absolute Nucleated RBC 0 10^3/ul Nucleated RBC % 0 Sodium 140 (135-145) mmol/L Potassium 4.3 (3.5-5.0) mmol/L Chloride 106 (101-111) mmol/L Carbon Dioxide 29 (22-32) mmol/L Anion Gap 5 (2-11) mmol/L BUN 13 (6-24) mg/dL Creatinine 0.95 (0.67-1.17) mg/dL Est GFR ( Amer) 98.5 (>60) Est GFR (Non-Af Amer) 81.4 (>60) BUN/Creatinine Ratio 13.7 (8-20) Glucose 105 H (70-100) mg/dL Lactic Acid 0.8 (0.5-2.0) mmol/L Calcium 8.9 (8.6-10.3) mg/dL Magnesium 1.9 (1.9-2.7) mg/dL Total Bilirubin 0.70 (0.2-1.0) mg/dL AST 13 (13-39) U/L ALT 11 (7-52) U/L Alkaline Phosphatase 43 (34-104) U/L C-Reactive Protein 5.02 (<8.01) mg/L Total Protein 6.8 (6.4-8.9) g/dL Albumin 4.0 (3.2-5.2) g/dL Globulin 2.8 (2-4) g/dL Albumin/Globulin Ratio 1.4 (1-3) Amylase 41 (29-103) U/L Lipase 37 (11.0-82.0) U/L Urine Color Urine Appearance Urine pH (5-9) Ur Specific [place] (1.010-1.030) Urine Protein (Negative) Urine Ketones (Negative) Urine Blood (Negative) Urine Nitrate (Negative) Urine Bilirubin (Negative) Urine Urobilinogen (Negative) Ur Leukocyte Esterase (Negative) Urine Glucose (Negative) 01/30/18 Range/Units 11:26 WBC (3.5-10.8) 10^3/ul RBC (4.00-5.40) 10^6/ul Hgb (14.0-18.0) g/dl Hct (42-52) % MCV (80-94) fL MCH (27-31) pg MCHC (31-36) g/dl RDW (10.5-15) % Plt Count (150-450) 10^3/ul MPV (7.4-10.4) um3 Neut % (Auto) (38-83) % Lymph % (Auto) (25-47) % [place] % (Auto) (0-7) % Eos % (Auto) (0-6) % Baso % (Auto) (0-2) % Absolute Neuts (auto) (1.5-7.7) 10^3/ul Absolute Lymphs (auto) (1.0-4.8) 10^3/ul Absolute Monos (auto) (0-0.8) 10^3/ul Absolute Eos (auto) (0-0.6) 10^3/ul Absolute Basos (auto) (0-0.2) 10^3/ul Absolute Nucleated RBC 10^3/ul Nucleated RBC % Sodium (135-145) mmol/L Potassium (3.5-5.0) mmol/L Chloride (101-111) mmol/L Carbon Dioxide (22-32) mmol/L Anion Gap (2-11) mmol/L BUN (6-24) mg/dL Creatinine (0.67-1.17) mg/dL Est GFR ( Amer) (>60) Est GFR (Non-Af Amer) (>60) BUN/Creatinine Ratio (8-20) Glucose (70-100) mg/dL Lactic Acid (0.5-2.0) mmol/L Calcium (8.6-10.3) mg/dL Magnesium (1.9-2.7) mg/dL Total Bilirubin (0.2-1.0) mg/dL AST (13-39) U/L ALT (7-52) U/L Alkaline Phosphatase (34-104) U/L C-Reactive Protein (<8.01) mg/L Total Protein (6.4-8.9) g/dL Albumin (3.2-5.2) g/dL Globulin (2-4) g/dL Albumin/Globulin Ratio (1-3) Amylase (29-103) U/L Lipase (11.0-82.0) U/L Urine Color Yellow Urine Appearance Clear Urine pH 8.0 (5-9) Ur Specific [place] 1.013 (1.010-1.030) Urine Protein Negative (Negative) Urine Ketones Negative (Negative) Urine Blood Negative (Negative) Urine Nitrate Negative (Negative) Urine Bilirubin Negative (Negative) Urine Urobilinogen Negative (Negative) Ur Leukocyte Esterase Negative (Negative) Urine Glucose Negative (Negative) Result Diagrams: 01/30/18 09:56 01/30/18 09:56 Lab Statement: Any lab studies that have been ordered have been reviewed, and results considered in the medical decision making process. Abdominal Pain Fem Course/Dx - Course Course Of Treatment: During the course of treatment, gallbladder ultrasound obtained to assess for cholecystitis versus cholelithiasis versus other etiology due to his RUQ pain labs obtained which show all labs WNL. UA obtained which is WNL. STABLE SUBCAPSULAR RIGHT HEPATIC LOBE HEMANGIOMA IN THIS OTHERWISE NORMAL RIGHT UPPER QUADRANT ULTRASOUND. Due to patient's continuing pain, CT abdomen and pelvis obtained to assess for other etiology. CT abdomen pelvis: THE LIVER IS HOMOGENOUSLY HYPODENSE RELATIVE TO THE SPLEEN WHICH COULD BE SEEN IN THE SETTING OF HEPATIC STEATOSIS OR OTHER CHRONIC INFILTRATIVE DISEASE. THERE IS THE APPEARANCE OF CIRCUMFERENTIAL WALL THICKENING AT THE GASTRIC PYLORIS BUT THIS MAY BE DUE TO APPROPRIATE CONTRACTION AT THE JUNCTION BETWEEN THE STOMACH AND DUODENUM. OTHERWISE THERE ARE NO CT OF HER FINDINGS THAT WOULD ACCOUNT FOR THE PATIENT'S CURRENT CLINICAL PRESENTATION. Discussed results with patient. He is encouraged to follow-up with GI if symptoms persist, however there is no identifiable findings for the reason for the patient's concerns and symptoms. He is okay with this plan and discharge. Pain remains a 07/17. - Diagnoses Differential Diagnosis/HQI/PQRI: Constipation, Urinary Tract Infection Provider Diagnoses: Right upper quadrant abdominal pain Discharge - Sign-Out/Discharge Documenting (check all that apply): Patient Departure - Discharge Plan Condition: Stable Disposition: HOME Referrals: Cj Carson MD [Medical Doctor] - Dangelo Arzate MD [Primary Care Provider] - Additional Instructions: Please follow up with GI specialist if symptoms persist - Billing Disposition and Condition Condition: STABLE Disposition: Home
== END 2018-01-30 14:18 | disposition home or self-care (01) ==
LOC: ED 08:48
DX: R10.11 Right upper quadrant pain (principal); R10.9 Unspecified abdominal pain
CPT/HCPCS: 36415; 74177; 76705; 80053; 81003; 82150; 83605; 83690; 83735; 85025; 86140; 99283; Q9967

== ENCOUNTER 2019-05-15 05:31 | Observation (INO) | payer BC ==
[~2019-05-15 05:31] MED LIST: Buffered Lidocaine 1% SYRIN* 1 ML/SYRINGE INTRADERM ONE; Tranexamic Acid 1,000 MG in NS 0.9% 50 ML* (outpatient use) IV SCH
--- OUTSIDE RECORDS SUMMARY | 2019-05-15 05:34 | XMS REPORT | Continuity of Care Document ---
:1960 External Reference #:[id number] Author Name Bunny Taveras M.D. (transmitted by agent of provider Sheba Gillespie ) Address [address] [address] Care Team Providers Name Role Phone Allen Holland PA - Physician Care Team Information Associate Spa Director [employer]worker Dangelo Arzate MD - Family Care Team Information Associate Spa Director Medicine Problems Active Problems Provider Date Localized, primary osteoarthritis of the Chilango Neves M.D. Onset: 2018 shoulder region Social History Type Date Description Comments Sex Unknown ETOH Use Occasionally consumes alcohol Tobacco Use Start: Unknown Patient has never smoked Smoking Status Reviewed: 04/11/19 Patient has never smoked Exercise Type/Frequency Exercises regularly Allergies, Adverse Reactions, Alerts Description No Known Drug Allergies Medications Active Medications SIG Qnty Indications Ordering Provider Date Amlodipine Besylate once daily, Chilango Neves, 06/15/2018 5mg unsure of dosage M.DConnie Tablets Tamsulosin HCL Chilango Neves, 06/15/2018 0.4mg M.D. Capsules Lisinopril 1 by mouth every Unknown 10mg Tablets day Testosterone Cypionate 200mg every 2 Unknown weeks 200mg/ml Solution Medications Administered in Office Medication SIG Qnty Indications Ordering Provider Date Depomedrol 80MG Chilango Neves M.D. 12/31/2011 Injection Immunizations Description No Information Available Vital Signs Date Vital Result Comment 04/11/2019 7:47am Weight 302.00 lb Heart Rate 82 /min BP Systolic Sitting 130 mmHg BP Diastolic Sitting 86 mmHg Body Temperature 97.9 F 12/02/2018 9:21am BP Systolic Sitting 142 mmHg BP Diastolic Sitting 100 mmHg Results Test Acquired Date Facility Test Result H/L Range Note Inr/Protime 05/05/2019 [facility] Inr 0.96 Normal 0.82-1.[address] [place] [address] [phone] Laboratory test 05/05/2019 [facility] Partial 34.2 Normal 26.0 -38.[address] [address] PTT [phone] Comp Metabolic 05/05/2019 [facility] Sodium 139 mmol/L Normal 135-[address] [place] [address] [phone] Potassium 4.3 mmol/L Normal 3.5-5.0 Chloride 102 mmol/L Normal 101-111 Co2 Carbon Dioxide 31 mmol/L Normal 22-32 Anion Gap 6 mmol/L Normal 2-11 Glucose 105 mg/dL High 70-100 Blood Urea Nitrogen 15 mg/dL Normal 6-24 Creatinine 1.00 mg/dL Normal 0.67-1.17 BUN/Creatinine Ratio 15.0 Normal 8-20 Calcium 9.3 mg/dL Normal 8.6-10.3 Total Protein 7.6 g/dL Normal 6.4-8.9 Albumin 4.4 g/dL Normal 3.2-5.2 Globulin 3.2 g/dL Normal 2-4 Albumin/Globulin Ratio 1.4 Normal 1-3 Total Bilirubin 0.60 mg/dL Normal 0.2-1.0 Alkaline Phosphatase 50 U/L Normal 34-104 Alt 15 U/L Normal 7-52 Ast 15 U/L Normal 13-39 Egfr Non- 76.5 >60 Egfr 92.5 >60 2 CBC Auto 05/05/2019 [facility] White Blood 8.5 10^3/uL Normal 3.5-10.[address] [place] [address] [phone] Red Blood Count 5.19 10^6/uL Normal 4.18-5.48 Hemoglobin 16.5 g/dL Normal 14.0-18.0 Hematocrit 47 % Normal 42-52 Mean Corpuscular Volume 91 fL Normal 80-94 Mean Corpuscular Hemoglobin 32 pg High 27-31 Mean Corpuscular HGB Conc 35 g/dL Normal 31-36 Red Cell Distribution Width 13 % Normal 10-15 Platelet Count 200 10^3/uL Normal 150-450 Mean Platelet Volume 8.4 fL Normal 7.4-10.4 Abs Neutrophils 5.5 10^3/uL Normal 1.5-7.7 Abs Lymphocytes 1.9 10^3/uL Normal 1.0-4.8 Abs Monocytes 0.9 10^3/uL High 0-0.8 Abs Eosinophils 0.3 10^3/uL Normal 0-0.6 Abs Basophils 0.0 10^3/uL Normal 0-0.2 Abs Nucleated RBC 0.0 10^3/uL Granulocyte % 64.3 % Lymphocyte % 22.1 % Monocyte % 10.1 % Eosinophil % 3.1 % Basophil % 0.4 % Nucleated Red Blood Cells % 0.4 Urinalysis Profile 05/05/2019 [facility] Urine Color Yellow [address] [place] [address] [phone] Urine Appearance Clear Urine Specific [place] 1.010 Normal 1.010-1.030 Urine pH 6.0 Normal 5-9 Urine Urobilinogen Negative Negative Urine Ketones Negative Negative Urine Protein Negative Negative Urine Leukocytes Negative Negative Urine Blood Negative Negative Urine Nitrite Negative Negative Urine Bilirubin Negative Negative Urine Glucose Negative Negative Type & Screen 05/05/2019 [facility] Patient Blood Type A Positive [address] [place] [address] [phone] Antibody Screen NEGATIVE 1 Standard intensity warfarin therapeutic range: 2.0-3.0 High intensity warfarin therapeutic range: 2.5-3.5 2 Because ethnic data is not always readily [...] 15-29 5 Kidney failure <15 (or dialysis) Procedures Description No Information Available Medical Devices Description No Information Available Encounters Type Date Location Provider Dx Diagnosis Office Visit 04/11/2019 [facility] Chilango Neves, M17.0 Bilateral primary 8:00a at [facility] osteoarthritis of knee Office Visit 12/02/2018 [facility] Chilango Neves, M19.011 Primary 9:30a at [facility] osteoarthritis, right shoulder Z96.611 Presence of right artificial shoulder joint Z47.1 Aftercare following joint replacement surgery Assessments Date Code Description Provider 04/11/2019 M17.0 Bilateral primary osteoarthritis of knee Chilango Neves M.D. 12/02/2018 M19.011 Primary osteoarthritis, right shoulder Chilango Neves M.D. 12/02/2018 Z96.611 Presence of right artificial shoulder joint Chilango Neves M.D. 12/02/2018 Z47.1 Aftercare following joint replacement surgery Chilango Neves M.D. Plan of Treatment Future Appointment(s):05/15/2019 8:00 am - BARB Ross at [facility] at [id number]/15/2019 8:00 am - Chilango Neves M.D. at [facility] at [id number]/11/2019 - Chilango Neves M.D.M17.0 Bilateral primary osteoarthritis of kneeFollow up:When Synvisc injections for the left knee approved 4 weeks after right knee surgery Functional Status Description No Information Available Mental Status Description No Information Available Referrals Description No Information Available
--- OUTSIDE RECORDS SUMMARY | 2019-05-15 05:35 | XMS REPORT | Continuity of Care Document ---
:1960 External Reference #:[id number] Author Name Chilango Neves M.D. (transmitted by agent of provider Lizzie Hahn) Address [address] [place] [address] [place] [address] Care Team Providers Name Role Phone Allen Holland PA - Physician Care Team Information Statistics Professor [phone] Dangelo Khan MD - Family Care Team Information Statistics Professor Medicine Problems Active Problems Provider Date Localized, [...] Chilango Neves, 06/15/2018 5mg unsure of dosage M.D. Tablets Tamsulosin HCL Chilango Neves, 06/15/2018 0.4mg [...] mmHg BP Diastolic Sitting 100 mmHg Results Description No Information Available Procedures Description No Information Available Medical Devices Description No Information Available Encounters Type Date Location Provider Dx Diagnosis Office Visit 12/02/2018 [facility] Chilango Neves, M19.011 Primary 9:30a at [facility] osteoarthritis, right shoulder Z96.611 Presence of right artificial shoulder joint Z47.1 Aftercare following joint replacement surgery Assessments Date Code Description Provider 12/02/2018 M19.011 Primary osteoarthritis, right shoulder Chilango Neves M.D. 12/02/2018 Z96.611 Presence of right artificial shoulder joint Chilango Neves M.D. 12/02/2018 Z47.1 Aftercare following joint replacement surgery Chilango Neves M.D. 10/21/2018 Z47.1 Aftercare following joint replacement surgery Chilango Neves M.D. 10/21/2018 Z96.611 Presence of right artificial shoulder joint Chilango Neves M.D. 10/21/2018 M23.221 Derangement of posterior horn of medial Chilango Neves M.D. meniscus due to old 10/21/2018 M17.11 Unilateral primary osteoarthritis, right knee Chilango Neves M.D. Plan of Treatment Future Appointment(s):05/15/2019 7:30 am - Chilango Neves M.D. at [facility] Functional Status Description No Information Available Mental Status Description No Information Available Referrals Description No Information Available
[2019-05-15] MEDS ORDERED: Lactated Ringers 1000 ML Bag* 1,000 ML IV SCH (06:00)
[2019-05-15] MEDS ORDERED: ceFAZolin 1 GM ADVAN(*) 1 GM ADDV.VIAL IVPB ONE (06:11)
[2019-05-15] MEDS ORDERED: ceFAZolin 2 GM in NS PREMIX(*) 2 GM/100 ML BAG IVPB ONE (06:12)
[2019-05-15] MEDS ORDERED: Buffered Lidocaine 1% SYRIN* 1 ML/SYRINGE INTRADERM ONE (06:12)
[2019-05-15] MEDS ORDERED: Dexmedetomidine* 200 MCG/2 ML 2 ML VIAL ONE (07:11)
[2019-05-15] MEDS ORDERED: Propofol* 10 MG/ML 20 ML BTL ONE ×3 (07:11→10:30)
[2019-05-15] MEDS ORDERED: Lidocaine 2% PF * 5 ML VIAL ONE (07:11)
[2019-05-15] MEDS ORDERED: Midazolam* 1 MG/ML 2 ML VIAL (2 MG) ONE ×4 (07:11→10:03)
[2019-05-15] MEDS ORDERED: ROPIVACAINE 5 MG/ML 30 ML BTL (0.5%) ONE (07:12)
[2019-05-15] MEDS ORDERED: Bupivacaine 0.25% EPI 200,000* 30 ML SDV ONE (07:22)
[2019-05-15] MEDS ORDERED: Propofol* 500 MG/50 ML BTL ONE ×2 (07:33→09:06)
[2019-05-15] MEDS ORDERED: Bupivacaine 0.5% SDV PF* 30ML VIAL ONE (07:33)
[2019-05-15] MEDS ORDERED: KETAMINE HCL* 50 MG/ML 10 ML VIAL ONE (07:33)
[2019-05-15] MEDS ORDERED: Dexamethasone IV* 4 MG/ML 1 ML (4 MG) ONE (08:15)
[2019-05-15] MEDS ORDERED: Ondansetron ODT TAB* 4 MG PO PRN (10:50)
[2019-05-15] MEDS ORDERED: Cyclobenzaprine TAB* 10 MG PO PRN (10:50)
[2019-05-15] MEDS ORDERED: diPHENhydraMINE IV* 50 MG/ML 1 ml VIAL (BENADRYL) IV PRN (10:50)
[2019-05-15] MEDS ORDERED: diPHENhydraMINE PO* 25 MG PO PRN (10:50)
[2019-05-15] MEDS ORDERED: Magnesium Hydroxide LIQ* 30 ML UDC PO PRN (10:50)
[2019-05-15] MEDS ORDERED: oxyCODONE TAB* 5 MG TAB PO PRN (10:50)
[2019-05-15] MEDS ORDERED: Morphine INJ* 2 MG/ML 1 ML SYRINGE (TWO MG - NEW SYRINGE VERSION) IV PRN (10:50)
[2019-05-15] MEDS ORDERED: Ondansetron INJ* 2 MG/ML VIAL IV PRN (10:50)
[2019-05-15] MEDS ORDERED: traMADol TAB* 50 MG PO PRN (10:50)
[2019-05-15] MEDS ORDERED: Albuterol HFA INHALER* 8 gm MDI INH PRN (10:56)
[2019-05-15] MEDS: D5W 1/2 NS 1000 ML BAG* 1,000 ML IV SCH ×2 (11:51→21:55)
[2019-05-15] MEDS ORDERED: oxyCODONE TAB* 5 MG TAB ONE (13:02)
--- NOTE | 2019-05-15 13:51 | CONS ---
CC: Dr. Arzate; Dr. Neves * CONSULTATION REPORT: DATE OF CONSULT: 05/15/19 PRIMARY CARE PROVIDER: Dr. Arzate. REASON FOR CONSULT: Hypertension, status post elective right knee replacement. CHIEF COMPLAINT: Right knee pain. HISTORY OF PRESENT ILLNESS: Juan Mackenzie is a 58-year-old male with a history of obesity, BMI of 40, and osteoarthritis, who is seen after an elective surgery on the right knee by Dr. Neves. Postoperatively, he is doing very well. He has no major complaints now. He is seen by our service due to his postoperative management of hypertension. PAST MEDICAL HISTORY: 1. Hypertension. 2. Gastroesophageal reflux disease. 3. Hypogonadism. 4. History of hip replacement. 5. Rotator cuff repair on the right. 6. Hernia repair. MEDICATIONS: Include: 1. Lisinopril 20 mg daily. 2. Hydrocodone and acetaminophen on a p.r.n. basis. 3. Testosterone injection every 2 weeks. 4. Amlodipine 5 mg daily. 5. ProAir 1 inhalation on a p.r.n. basis. 6. Flomax 0.4 mg daily. ALLERGIES: BEE VENOM. FAMILY HISTORY: Positive for father with colon cancer, mother with multiple sclerosis. SOCIAL HISTORY: The patient denies any tobacco, alcohol, or drug use. 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 He lives with his girlfriend Teena Vance, who is her surrogate. REVIEW OF SYSTEMS: Please see history of present illness. All the remaining 12 systems were reviewed with the patient and were otherwise negative. PHYSICAL EXAM: Blood pressure of 147/87, heart rate of 81 and regular, respiratory rate 16, oxygen saturation 98% on room air, temperature 97.4. General: The patient is a very pleasant 58-year-old male, who is in no acute distress. The patient is alert and oriented x3. HEENT: Head: Atraumatic, normocephalic. Eyes: Pupils are equal and reactive to light and accommodation. Oropharynx is clear. Mucosa moist. Neck: Supple. No JVD. No bruits bilaterally. Cardiovascular: Regular rate and rhythm. No murmur. Respiratory : Clear to auscultation bilaterally. Abdomen: Soft, nontender. Bowel sounds are present in all 4 quadrants. Extremities: There is no edema. Pedal pulses are +2 bilaterally. There is no clubbing or cyanosis. Postoperative right knee is in a cryo unit and postoperative dressings were not removed for evaluation. DIAGNOSTIC STUDIES/LAB DATA: None. ASSESSMENT AND PLAN: 1. In regards to the patient's hypertension management, I agree with continuation of the patient's amlodipine and holding of the patient's lisinopril unless he becomes markedly hypertensive for the next 24 hours. 2. For postoperative knee management, as per orthopedic service. The patient also was placed on heparin subcutaneously for DVT prophylaxis by the primary service. 3. The patient's code status is full. His surrogate is his girlfriend. TIME SPENT: Approximately 55 minutes were spent on the consultation of this patient, more than half that time was spent [id number] with the patient during the interview and physical exam. Thank you very much for allowing our service to see your patient in consultation. We will sign off for now and follow with the patient on an as needed basis. [id number]/[facility] #: [id number] MTDD
[2019-05-15] MEDS ORDERED: Heparin VIAL(*) 5000 UNITS/ML VIAL (FIVE THOUSAND) SUBCUT SCH (14:00)
--- NOTE | 2019-05-15 14:32 | OP ---
DATE OF OPERATION: 05/15/19 - ROOM #348 DATE OF : 58 SURGEON: Chilango Neves MD. [employer] TRUCK DRIVER: Lali Osullivan RPA. ANESTHESIA: Regional/spinal/sedation. PRE-OP DIAGNOSIS: Osteoarthritis, right knee. POST-OP DIAGNOSIS: Osteoarthritis, right knee. OPERATIVE PROCEDURE: Right total knee arthroplasty with NAVIO guidance. ESTIMATED BLOOD LOSS: Less than 100 cc. COMPLICATIONS: None. HARDWARE: Brown and Nephew #8 Legion femur, #7 Bibi II tibia, 9 mm polyethylene spacer, 38 mm all polyethylene patellar button. INDICATIONS: Mr. Mackenzie is a 58-year-old male who has been having more and more troubles with both of his knees, the right is worse than the left and by x- ray had significant arthritic changes where he had loss of the media joint space and spur formation. He had recently undergone a total shoulder arthroplasty and managed to get back to work, but now it was the knee giving him limitations. We did try conservative treatment with physical therapy, injections, and anti-inflammatories, but the knee was still very limiting and he was very interested in knee replacement surgery. Risks of surgery such as infection, scar formation, stiffness, DVT, pulmonary embolism, hardware failure and continued pain were some of the risks discussed and he had wished to proceed. DESCRIPTION OF PROCEDURE: The patient had an adductor canal block placed in the holding area and was brought back to the OR. Spinal anesthesia was introduced. Ramirez catheter and tourniquet were placed. Total tourniquet time would be 91 minutes. Right knee was prepped and then draped. Esmarch was used to exsanguinate the leg and the tourniquet was raised. Midline incision was made approximately 4 fingerbreadths above the superior pole of the patella and was carried down to the medial side of the tibial tubercle. Incision was carried down through the skin and subcutaneous tissues. Small bleeders encountered were ligated using electrocautery. Extensor mechanism was exposed and a sharp parapatellar arthrotomy was made. Spurs and arthritic change were immediately evident. Fat pad were sharply excised and the soft tissues were sharply elevated from the medial side of the tibia. Three of my fingerbreadths below the tibial tubercle, skin was incised and the drill guide was placed on the tibia. Drill was placed and the second drill pin was placed, but then I was unable to remove the drill guide. Pins had to be taken out and then using the reamer setting on the drill, both pins were replaced. Different guide was used for the femur and beginning 4 fingerbreadths above where the superior pole of the patella was, 2 pins were placed. Arrays were assembled and the knee was taken through a range of motion, so the NAVIO could record motion and stability. Once this was done, wand was used to scan in the distal femur and proximal tibia. Once that was done, knee was covered and parts were adjusted. I templated him to a 6 tibia with an 8 femur and the computer had set him for an 8 and an 8. I downsized the tibia to a 7 as that did look like it fit well. Femur and tibia were adjusted until I liked the flexion and extension gaps. Once that was done, bur was then used to take down the distal tibia so that a cutting guide could be placed. Cutting guide was placed and adjusted, but with how it sat, I ended up being a little bit too superior by about a little bit over a millimeter. Re-cutter was placed and the cutting block was moved down. Nice smooth cut was obtained this time. Posterior femoral cuts and chamfer cuts were all taken then. Attention was turned to the tibia. Drill holes were made using NAVIO guidance and tibia cutting block was placed. Proximal tibial cut was taken and it appeared a nice cut was obtained. Spacer block was placed and his flexion and extension gaps were perfect, as was his alignment with the drop nay. Proximal tibia had the 7 fit very nicely and the base plate was pinned into place and the proximal tibia was drilled and then punched. Femoral component was placed over the distal femur and the notch was reamed and then punched. Trial polyethylene was placed and he came out now nicely into full extension where before he had a 10- to 15-degree flexion contracture and he still easily flexed. Patellar tracking was difficult to say with the pins in. Pins were removed and patellar tracking seemed to be good as well. Patella was cut. Patella had measured approximately 23 mm in thickness and a nice 9 mm cut was taken. Patella sized nicely at a 38 and holes were drilled and trial was snapped into place. Patella was easily flexed. Patella tracked well with flexion and extension of the knee. Trial instrumentation was removed. The knee was copiously pulse lavaged. Outrigger, arrays, and pins were all removed as well. Cement was being prepared and then tibia followed by femur and patella were all cemented into place. Excess cement was removed and cement was allowed to harden. Once the cement had hardened, it was taken through a range of motion with the 9 tibia and it had wonderful motion and stability and patellar tracking was excellent as well. Trial polyethylene was removed. The knee was again copiously pulse lavaged and searched for cement. Few small pieces were found. Polyethylene was then snapped into place. He again was taken through a range of motion and range of motion was still very good. The knee was again copiously pulse lavaged and tourniquet was let down. No significant bleeding was encountered. Parapatellar arthrotomy was repaired using interrupted #1 Vicryl sutures. Subcutaneous tissues were reapproximated with 2-0 Vicryl and skin was closed using farnaz. Sterile dressing and a Cryo/ Cuff were applied in the OR. The patient was then awakened, stable on transfer to the recovery room. [id number]/[facility] #: [id number] SURENDRA
[2019-05-15] MEDS: Acetaminophen TAB* 325 MG PO SCH ×2 (14:38→21:26)
[2019-05-15] MEDS ORDERED: traMADol TAB* 50 MG PO SCH (16:00)
[2019-05-15] MEDS: ceFAZolin 1 GM ADVAN(*) 1 GM in NS 0.9% 50 ML* 50 ML IVPB SCH (16:12)
[2019-05-15] MEDS ORDERED: Warfarin TAB(*) 10 MG PO ONE (17:00)
[2019-05-15] MEDS: oxyCODONE TAB* 5 MG TAB PO PRN ×2 (17:19→21:23)
[2019-05-15] MEDS ORDERED: amLODIPine TAB* 5 MG ONE (18:14)
[2019-05-15] MEDS: Ketorolac INJ* 30 MG/ML 1 ML VIAL IV PUSH PRN (18:17)
[2019-05-15] MEDS ORDERED: amLODIPine TAB* 5 MG PO ONE (19:00)
[2019-05-15] MEDS: Magnesium Hydroxide LIQ* 30 ML UDC PO SCH (19:37)
[2019-05-15] MEDS: traMADol TAB* 50 MG PO SCH (20:58)
[2019-05-15] MEDS: Docusate CAP* 100 MG PO SCH (20:59)
[2019-05-15] MEDS: Lisinopril TAB* 10 MG PO SCH (20:59)
[2019-05-16] MEDS: ceFAZolin 1 GM ADVAN(*) 1 GM in NS 0.9% 50 ML* 50 ML IVPB SCH ×2 (00:17→07:36)
[2019-05-16] MEDS: oxyCODONE TAB* 5 MG TAB PO PRN ×3 (02:23→11:45)
[2019-05-16] MEDS: traMADol TAB* 50 MG PO SCH ×2 (03:20→09:47)
[2019-05-16 05:21] LABS: INR 1.21 (0.82-1.09)
[2019-05-16 05:24] LABS: Hematocrit 38 % (42-52); Hemoglobin 13.8 g/dL (14.0-18.0); Mean Platelet Volume 8.2 fL (7.4-10.4); Platelet Count 183 10^3/uL (150-450)
[2019-05-16 05:31] LABS: BUN/Creatinine Ratio 20.4 (8-20); Calcium 8.3 mg/dL (8.6-10.3); EGFR African American 100.6 (>60); EGFR Non-African American 83.2 (>60); Potassium 4.4 mmol/L (3.5-5.0)
[2019-05-16] MEDS: Acetaminophen TAB* 325 MG PO SCH ×2 (05:40→14:06)
[2019-05-16] MEDS: Ketorolac INJ* 30 MG/ML 1 ML VIAL IV PUSH PRN (05:41)
[2019-05-16] MEDS: Magnesium Hydroxide LIQ* 30 ML UDC PO SCH (07:41)
[2019-05-16] MEDS: Lisinopril TAB* 10 MG PO SCH (07:41)
[2019-05-16] MEDS: Docusate CAP* 100 MG PO SCH (07:41)
[2019-05-16] MEDS ORDERED: Tamsulosin CAP* 0.4 MG PO SCH (09:00)
[2019-05-16] MEDS ORDERED: amLODIPine TAB* 5 MG PO SCH (09:00)
[2019-05-16] MEDS ORDERED: Vitamin THERAPEUTIC TAB PO SCH (09:00)
[2019-05-16] MEDS ORDERED: Heparin VIAL(*) 5000 UNITS/ML VIAL (FIVE THOUSAND) SUBCUT SCH (09:00)
--- NOTE | 2019-05-16 09:03 | DS ---
Orthopedic Discharge Summary - Discharge Summary Date of Admission:05/15/19 Date of Discharge: 05/16/19 Date of Surgery: 05/15/19 Attending Orthopedic Provider: Dr Neves Pre-operative Diagnosis: right knee osteoarthritis Operative Procedure: right total knee replacement, [email or web address] Disposition of Patient: home with outpatient PT and outpatient INR draws Condition of Patient: stable History: CRISTOBAL TOMPKINS is a 58 year old M with years of increasingly severe right k nee pain. Patient has failed conservative management and has elected to undergo a [facility] total knee replacement Hospital Course: CRISTOBAL was admitted to [facility] on 05/15/19. Patient underwent a right total knee replacement without complication followed by a brief recovery in PACU and transfer to the Short Stay Surgical Unit in stable condition. Our hospitalist service, physical therapy and occupational therapy also participated in this patients care. Post-op day 1: Patient was seen at bedside without complaints. Knee pain was well controlled and he denied chest pain, shortness of breath, dizziness or nausea. Patient was alert and in no acute distress. Dressing was changed and incisions were clean, dry and intact. Operative extremity dorsiflexion and plantarflexion intact, sensation intact to light touch distally, DP2+. Patient was deemed to be medically and orthopedically stable for discharge. Physical therapy goals were met and he desired DC to home. Home Medications Medication Instructions Recorded Confirmed Type Lisinopril TAB* [Prinivil TAB 10 20 mg PO QAM 05/29/05/15/19 History MG*] amLODIPine TAB* [Norvasc 5 mg TAB*] 5 mg PO QAM 11/24/16 05/15/19 History EPINEPHrine [Epipen 2-Danny] 0.3 mg IM ONCE PRN 07/01/18 05/05/19 History Tamsulosin CAP* [Flomax CAP*] 0.4 mg PO QAM 07/01/18 05/15/19 History Testosterone Cypionate 100 mg IM [id number] 01/12/19 05/15/19 History Proair Digihaler 2 puff INH TID PRN 05/05/19 05/15/19 History Acetaminophen TAB* [Tylenol TAB*] 975 mg PO Q8HR tab 05/16/19 Rx Aspirin TAB* [Aspirin 325 MG TAB*] 325 mg PO DAILY #30 tab 05/16/19 Rx Docusate CAP* [Colace Cap*] 100 mg PO BID PRN #90 cap 05/16/19 Rx Warfarin TAB(*) [Coumadin TAB(*)] 2 mg PO DAILY #90 tab 05/16/19 Rx oxyCODONE TAB* [Roxycodone TAB 5 5 mg PO Q4H PRN tab MDD 10 05/16/19 Rx mg*] oxyCODONE TAB* [Roxycodone TAB 5 10 mg PO Q4H PRN #50 tab MDD 10 05/16/19 Rx mg*] Discharge Instructions following Orthopedic Surgery: Activity: * Weight Bearing as tolerated * Continue physical therapy and occupational therapy exercises as shown * Start outpatient PT Wound care: * OK to shower on post-op day 3, no bathing, swimming, or submerging wound. * Use gentle soap, pat dry. Cover with gauze, ANALISA wrap or tape. * Make an appointment with ortho office ( your preferred location) for removal of sutures and farnaz in 10-14 days Call Orthopedic office for: * Increased drainage * Redness * Increased pain * Fever Go to ER with shortness of breath or chest pain. Diet: * Regular diet * Increase fluids and fiber to prevent constipation. * Continue to use stool softeners, call office if no bowel motion within 48 hours. Medications See Home Medication List in your packet for medications that you should take after discharge. DVT Prophylaxis: Increases bleeding tendency Coumadin Dosing: * Please note that you have been given 2 mg tablets. * Go to the outpatient lab to draw blood work for INR on Mondays and x 30 days post op. * You will be provided with dose instructions on Mondays and byt orthopedic office. * If you do not receive dosing instruction on dosing, please call our office right away. Please art dosing instructions on your calendar as they are provided to you. * Dosin mg on 05/16 and 6 mg on 05/17. On 05/18 recheck INR blood draw for further dosing instructions. Call orthopedic office if you do not receive dosing instructions. * You will need to take aspirin 325 mg everyday until INR lab value is between 2-3. This is in addition to coumadin. You will be instructed by orthopedics when to stop taking aspirin and to continue with coumadin alone. Anticipate taking aspirin for 1-5 days after discharge, after which point you will be on coumadin for 30 days post op. Pain Control: oxycodone 5 mg 1 tab for moderate and 2 tabs for severe pain by mouth every 4 hours as needed . Maximum of 10 tabs per day. Hold for sedation, wean off as soon as pain allows Antibiotics are required prior to any dental work. FOLLOW UP: Follow up with [[facility]] Within 4 weeks, make appt for suture and staple removal in 10-14 days. call for appointments for both of these services. Please call our office with any questions or concerns ([phone]) [facility]
[2019-05-16 11:16] VITALS: BP 138/73
[2019-05-17] MEDS ORDERED: Bisacodyl SUPP* 10 MG SUPP PR PRN (10:50)
== END 2019-05-16 14:32 | disposition home or self-care (01) ==
LOC: AA 05:31 → INTOOBSV 05:31 → SSU 13:12
PROVIDERS: ADMIT Orthopaedic Surgery; ATTEND Orthopaedic Surgery
DX: M17.11 Unilateral primary osteoarthritis, right knee (principal); Z79.899 Other long term (current) drug therapy; Z79.01 Long term (current) use of anticoagulants; I10 Essential (primary) hypertension; K21.9 Gastro-esophageal reflux disease without esophagitis; E29.1 Testicular hypofunction; Z96.641 Presence of right artificial hip joint; Z87.828 Personal history of other (healed) physical injury and trauma
CPT/HCPCS: 36415; 80048; 85014; 85018; 85049; 85610; 96372; 96374; 96375; A9270-GY; C1776; G0378; J0690; J1100; J1644; J1885; J2250; J2270; J2704; J2795; J3490

== ENCOUNTER 2021-07-28 05:43 | Inpatient (IN) ==
[2021-07-28] MEDS ORDERED: Lactated Ringers 1000 ml BAG 1,000 ML IV SCH (06:00)
[2021-07-28] MEDS ORDERED: Buffered Lidocaine 1% SYRIN 1 ml INTRADERM ONE (06:00)
[2021-07-28] MEDS ORDERED: ceFAZolin 2 GM in NS PREMIX 2 GM/100 ML BAG IVPB ONE (06:40)
[2021-07-28] MEDS ORDERED: Lidocaine 1% MPF 5 ML VIAL ONE (06:50)
[2021-07-28] MEDS ORDERED: Dexamethasone IV 4 MG/ML VIAL 1 ml VIAL ONE (06:54)
[2021-07-28] MEDS ORDERED: Propofol 10 MG/ML 20 ML BTL ONE (06:54)
[2021-07-28] MEDS ORDERED: Sterile Water for Inj 10 ML ONE (06:54)
[2021-07-28] MEDS ORDERED: Ondansetron 4 mg VIAL 2 MG/ML 2 ml VIAL ONE (06:54)
[2021-07-28] MEDS ORDERED: Sevoflurane BOTTLE ONE (06:54)
[2021-07-28] MEDS ORDERED: EPHEDrine (Pressors) 50 MG/ML VIAL ONE (06:54)
[2021-07-28] MEDS ORDERED: Acetaminophen IV 1 GM/100ML 100 ML IV ONE (06:54)
[2021-07-28] MEDS ORDERED: Phenylephrine 40 mcg/mL 10mL (400mcg) SYRINGE ONE ×2 (06:54→07:44)
[2021-07-28] MEDS ORDERED: Lidocaine 2% PF 5 ML VIAL ONE ×2 (06:54→07:01)
[2021-07-28] MEDS ORDERED: Rocuronium 50 mg VIAL 10 mg/ml 5 ml VIAL (50 mg) ONE ×2 (06:56→09:12)
[2021-07-28] MEDS ORDERED: Bupivacaine 0.5% SDV PF 30ML VIAL ONE ×2 (07:01→07:18)
[2021-07-28] MEDS ORDERED: Midazolam 2 mg/2 ml VIAL 1 mg/ml 2 ml VIAL (2 mg) ONE (07:01)
[2021-07-28] MEDS ORDERED: Dexmedetomidine 200 mcg/2 ml 2 ml VIAL (200 mcg) ONE (07:01)
[2021-07-28] MEDS ORDERED: Labetalol IV 5 MG/ML 20 ml VIAL ONE (07:04)
[2021-07-28] MEDS ORDERED: fentaNYL 100 mcg/2 ml 50 MCG/ML VIAL ONE ×2 (07:05→11:20)
[2021-07-28] MEDS ORDERED: Vancomycin 1,000 MG VIAL ONE (07:18)
[2021-07-28] MEDS ORDERED: Phenylephrine IV 10 MG/ML 1 ml VIAL ONE (07:47)
[2021-07-28] MEDS ORDERED: Bupivacaine 0.25% w/EPI 10 ML SDV ONE (08:04)
[2021-07-28] MEDS ORDERED: DiMENhydriNATE IV 50 mg/ml 1 ml VIAL IV PUSH PRN (08:20)
[2021-07-28] MEDS ORDERED: Naloxone 0.4 mg VIAL 0.4 mg/ml 1 ml VIAL IV PRN (08:20)
[2021-07-28] MEDS ORDERED: Magnesium Hydroxide LIQ 30 ML UDC PO PRN (11:08)
[2021-07-28] MEDS ORDERED: Morphine 4 MG/ML VIAL (1 ml) IV PRN (11:08)
[2021-07-28] MEDS ORDERED: Ondansetron ODT 4 mg TAB 4 MG TAB PO PRN (11:08)
[2021-07-28] MEDS ORDERED: diPHENhydraMINE IV 50 MG/ML 1 ml VIAL (BENADRYL) IV PRN (11:08)
[2021-07-28] MEDS ORDERED: diPHENhydraMINE 25 mg TAB PO PRN (11:08)
[2021-07-28] MEDS ORDERED: Ondansetron 4 mg VIAL 2 MG/ML 2 ml VIAL IV PRN (11:08)
[2021-07-28] MEDS ORDERED: Lactulose 30 ml UDC PO PRN (11:08)
[2021-07-28] MEDS ORDERED: HYDROcodone/ACETAMIN 5/325 mg TAB PO PRN (11:15)
[2021-07-28] MEDS ORDERED: Desflurane 240 ML INH ONE (11:17)
[2021-07-28] MEDS: fentaNYL 100 mcg/2 ml 50 MCG/ML VIAL IV PRN ×4 (11:24→11:46)
[2021-07-28] MEDS: D5W 1/2 NS 1000 ml BAG 1,000 ML IV SCH (13:39)
[2021-07-28] MEDS: ceFAZolin 1 GM in Dextrose 1 GM/50 ML BAG IVPB SCH ×2 (15:50→23:39)
[2021-07-28] MEDS: Magnesium Hydroxide LIQ 30 ML UDC PO SCH ×2 (19:57→21:17)
[2021-07-29] MEDS: D5W 1/2 NS 1000 ml BAG 1,000 ML IV SCH (01:16)
[2021-07-29 05:41] LABS: Calcium 8.5 mg/dL (8.6-10.3); Potassium 4.2 mmol/L (3.5-5.0); eGFR CKD-EPI 91.1 (>60)
[2021-07-29 06:01] LABS: Hematocrit 40 % (42-52); Hemoglobin 13.6 g/dL (14.0-18.0); Mean Platelet Volume 8.4 fL (7.4-10.4); Platelet Count 162 10^3/uL (150-450)
[2021-07-29] MEDS: ceFAZolin 1 GM in Dextrose 1 GM/50 ML BAG IVPB SCH (08:07)
[2021-07-29] MEDS: Magnesium Hydroxide LIQ 30 ML UDC PO SCH (08:08)
[2021-07-29] MEDS ORDERED: Vitamin THERAPEUTIC TAB PO SCH (09:00)
[2021-07-29] MEDS ORDERED: NF:tadalafiL 5 MG TABLET (NF) PO SCH (09:00)
[2021-07-29 11:01] VITALS: BP 150/79
== END 2021-07-29 13:26 | disposition home or self-care (01) | DRG 322 ==
LOC: AA 05:43 → SSU 12:51
PROVIDERS: ADMIT Orthopaedic Surgery; ATTEND Orthopaedic Surgery